=== PATIENT | male | born 2005 | race Caucasian/White ===

== ENCOUNTER 2024-06-10 22:33 | Inpatient (IN) ==
--- NOTE | 2024-06-10 22:40 | Emergency Department Note ---
Impression & Plan Mycoplasma pneumonia, Hypoxia, Fever ED Provider Note NAME: JORGE LUIS ROLON AGE: 19 SEX: M : 2005 ARRIVES VIA: Ambulance INFORMANT: EMS/nursing report, father ED PROVIDER(S): Bobby Hooker MD CHIEF COMPLAINT: Fever, possible pneumonia MEDICAL DECISION MAKING: Patient presents due to concern for fever possible pneumonia. IV was established and blood work was obtained. IV fluids ordered. The patient was ordered empiric antibiotic for possible pneumonia s. Patient with a normal white count hemoglobin and platelet count. The patient's kidney function unremarkable. Lactate normal. Pro-John not elevated. Chest x-ray without obvious pneumonia. Gaseous distention noted of the stomach. There was no reported vomiting the patient does have occasional constipation per the father at bedside. CT abdomen pelvis performed to rule out bowel obstruction. BioFire positive for mycoplasma pneumonia. CT abdomen pelvis shows gas distended colon without volvulus and fluid-filled small bowel without flo dilatation to suggest obstruction. Upon reevaluation the patient did have a very large bowel movement. Given the patient's hypoxia I did speak with the on-call medicine service and the patient was admitted by Dr. Parker. Critical Care: I have personally spent 50 minutes of critical care time in direct management of this patient. This includes bedside care, interpretation of diagnostic studies, and testing, discussion with consultants, patient, and family members, and other require inpatient management activities. This 50 minutes is in excess of all separately billable procedures. Discussion w/ other healthcare providers: Dr. Parker inpatient medicine service Prior /Outside records reviewed: None Differential diagnosis: Reactive airway disease, pneumonia, pneumothorax, COPD, CHF, ACS, pulmonary embolism, musculoskeletal, GERD as well as other pathologies were considered. Diagnostics, as interpreted by me: ECG: Sinus tachycardia, rate of 102, normal intervals, normal axis no ST elevations. Cardiac monitoring: An order was placed for continuous cardiac monitoring. The monitor shows a rate of 85 with sinus rhythm. Patient was placed on pulse oximetry Medical decision rules: None Imaging studies: I informally interpreted the patient's chest x-ray shows no obvious pneumonia but evidence of gaseous distention of the bowel with formal report to follow. HPI: Patient presents due to concern for respiratory difficulties but no associated vomiting. Patient reportedly was recently hospitalized at [facility] and there were some reports of seizures. 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 Patient reportedly had a temperature of 105 at home did receive a Tylenol suppository. EMS reported that the patient was satting in the 80s did receive breathing treatments and route as well as IV fluids. Patient is nonverbal. Father did arrive and can provide some history reporting that he was recently admitted to [facility]. He does not live with his son but states that patient's mother had told him about the recent illness. PAST MEDICAL HISTORY: See Below PAST SURGICAL HISTORY: See Below SOCIAL HISTORY: See Below HOME MEDICATIONS: See Below ALLERGIES: See Below VITALS: See Below PHYSICAL EXAMINATION: GENERAL: NAD, non-toxic. EYE EXAM: Normal conjunctiva. PERRL, no anisocoria and EOM's grossly intact w/o pain. OROPHARYNX: Moist mucus membranes, grossly normal dentition. NECK: Trachea midline, no stridor. LUNGS: Rhonchi at both bases more prominent left chest. Normal chest wall mechanics. HEART: NSR, no MRG. ABDOMEN: Abdomen soft, non-tender, no masses, no rebound or guarding. BACK: No CVA TTP. : Circumcised, bilateral descended no evidence of Luisana's cellulitis or abscess SKIN: No rashes and no bruising. UPPER EXTREMITIES: Upper extremities are grossly normal. LOWER EXTREMITIES: Grossly normal, no edema. NEURO EXAM: Nonverbal. Moves all 4 extremities. Past Med/Surg History Problem List (Updated 06/14/24 @ 08:35 by Bobby Hooker MD) Fever (Acute) Hypoxia (Acute) Colon distention Mycoplasma pneumonia (Acute) Acute UTI Encounter for pre-operative examination Gross hematuria Medical History (Updated 06/14/24 @ 08:35 by Bobby Hooker MD) GERD (gastroesophageal reflux disease) ATR-X syndrome History of anesthesia reaction diffulty waking during EGD to check for achalasia at [facility] 05/2023, no achalasia present per mom Scoliosis Incontinence History of hematuria Limited peripheral vision of both eyes Abnormal electroencephalogram (EEG) "abnormal neurological event" approximately one year ago, follows with Dr Ricki Humphreys at [facility] Cerebral palsy non verbal, able to follow some simple commands, mother will be present DOS Surgical History History of esophagogastroduodenoscopy (EGD) [facility], 05/2023, difficulty waking patient Social History Smoking Status: Never smoker Second Hand Exposure: No; Do You Dip or Chew Tobacco: No; Hx Alcohol Use: No Hx Substance Use: No Preferred Language: Frisian Communication Ability: Impaired Communication Ability Comment: mother states he can follow simple commands Seamer Elastic Band Required: No Beliefs That Will Affect Care: None Current Living Situation: Family Other Information That Helps Us Care for You: No Feels Safe at Home: Declines to Answer Assistive Devices: Hospital Bed and Wheelchair Allergies Allergies Allergy/AdvReac Type Severity Reaction Status Date / Time No Known Allergies Allergy Verified 09/01/23 06:23 Home Meds Home Medications Medication Instructions Recorded Confirmed baclofen 10 mg tablet 10 mg PO UD 06/11/24 06/11/24 bethanechol chloride 2.5 ml PO TID 06/11/24 06/11/24 bisacodyl 5 mg tablet,delayed 5 mg PO DAILY 06/11/24 06/11/24 release (Laxative (bisacodyl)) glycopyrrolate 1 mg tablet 2 mg PO BID 06/11/24 06/11/24 lansoprazole 30 mg delayed 30 mg PO BID 06/11/24 06/11/24 release,disintegrating tablet sulfamethoxazole 800 1 tab PO DIRECTED 06/11/24 06/11/24 mg-trimethoprim 160 mg tablet Results & Data (ED) Vital Signs Vital Signs - 24 hr 06/10/24 22:36 06/10/24 22:42 06/10/24 22:55 Temperature 36.3 C L Temperature Source Oral Pulse Rate 110 H 107 H Pulse Rate [Apical] Pulse Rhythm [Apical] Pulse Strength [Apical] Respiratory Rate 27 H Respiratory Effort / Characteristics Respiratory Depth Blood Pressure 101/82 Blood Pressure [Right Arm] Blood Pressure Mean 88 Blood Pressure Mean [Right Arm] Pulse Oximetry 93 92 Oxygen Delivery Method Room Air Room Air Sepsis Recent Fever Within 48 Hours Yes Sepsis New/Unexplained Change in Mental Status No Sepsis Action Taken by Nursing No Action Required 06/10/24 23:02 06/10/24 23:31 06/11/24 00:00 Temperature Temperature Source Pulse Rate 101 H Pulse Rate [Apical] 97 H 112 H Pulse Rhythm [Apical] Regular Regular Pulse Strength [Apical] Normal Normal Respiratory Rate 28 H 16 16 Respiratory Effort / Characteristics Non-Labored Spontaneous Non-Labored Spontaneous Respiratory Depth Normal Normal Blood Pressure Blood Pressure [Right Arm] 118/91 111/73 Blood Pressure Mean Blood Pressure Mean [Right Arm] 100 85 Pulse Oximetry 93 93 93 Oxygen Delivery Method Room Air Room Air Room Air Sepsis Recent Fever Within 48 Hours Sepsis New/Unexplained Change in Mental Status Sepsis Action Taken by [facility]dc Medications Current Medication List: was personally reviewed by me Laboratory Data Attestation: I reviewed the patient's lab results. 06/13/24 06:33 06/14/24 06:34 Lab Results 06/10/24 06/10/24 06/11/24 Range/Units 23:29 Unknown 00:37 WBC Cancelled 8.87 RBC Cancelled 5.58 Hgb Cancelled 14.7 Hct Cancelled 45.3 MCV Cancelled 81.2 MCH Cancelled 26.3 MCHC Cancelled 32.5 RDW Std Deviation Cancelled 48.2 H RDW Coeff of Felix Cancelled 16.7 H Plt Count Cancelled 160 MPV Cancelled Immature Gran % (Auto) Cancelled 1.0 Neut % (Auto) Cancelled 73.6 Lymph % (Auto) Cancelled 8.7 Terry % (Auto) Cancelled 14.0 Eos % (Auto) Cancelled 2.4 Baso % (Auto) Cancelled 0.3 Neut # (Auto) Cancelled 6.53 H Lymph # (Auto) Cancelled 0.77 L Terry # (Auto) Cancelled 1.24 H Eos # (Auto) Cancelled 0.21 Baso # (Auto) Cancelled 0.03 Immature Gran # (Auto) Cancelled 0.09 Absolute Nucleated RBC Cancelled Nucleated RBC % (auto) Cancelled Neutrophils % (Manual) Cancelled Band Neutrophils % Cancelled Lymphocytes % (Manual) Cancelled Prolymphocyte % Cancelled Reactive Lymphs % (Man) Cancelled Monocytes % (Manual) Cancelled Eosinophils % (Manual) Cancelled Basophils % (Manual) Cancelled Metamyelocytes % (Man) Cancelled Myelocytes % (Man) Cancelled Promyelocytes % (Man) Cancelled Blast Cells % (Manual) Cancelled Plasma Cell % (Manual) Cancelled Other Cells % Cancelled Nucleated RBC % Cancelled Neutrophils # (Manual) Cancelled Band Neutrophils # Cancelled Total Absolute Neuts Cancelled Lymphocytes # (Manual) Cancelled Prolymphocyte # Cancelled Reactive Lymphs # Cancelled Total Abs Lymphocytes Cancelled Monocytes # (Manual) Cancelled Eosinophils # (Manual) Cancelled Basophils # (Manual) Cancelled Metamyelocytes # (Man) Cancelled Myelocytes # (Manual) Cancelled Promyelocytes # (Man) Cancelled Blast Cells # (Man) Cancelled Plasma Cell # (Manual) Cancelled Other Cells # Cancelled Nucleated RBCs # (Man) Cancelled Hypersegmented Neuts Cancelled Hyposegmented Neuts Cancelled Hypogranular Neuts Cancelled Large Granular Lymphs Cancelled # Lrg Granular Lymphs Cancelled Hairy Cells Cancelled Smudge Cells Cancelled Toxic Granulation Cancelled Toxic Vacuolation Cancelled 1+ Dohle Bodies Cancelled Daphne Rods Cancelled Platelet Estimate Cancelled Decreased L Hypogranular Platelets Cancelled Giant Platelets Cancelled Platelet Satelliting Cancelled RBC Morphology Cancelled Polychromasia Cancelled 1+ Hypochromasia Cancelled Poikilocytosis Cancelled Basophilic Stippling Cancelled Anisocytosis Cancelled Microcytosis Cancelled Macrocytosis Cancelled Spherocytes Cancelled Pappenheimer Bodies Cancelled Sickle Cells Cancelled Target Cells Cancelled Tear Drop Cells Cancelled Ovalocytes Cancelled Stomatocytes Cancelled Brown-Bowdens Bodies Cancelled Echinocytes Cancelled Acanthocytes (Spur) Cancelled Rouleaux Cancelled RBC Agglutinates Cancelled Schistocytes Cancelled Sezary Cell Cancelled Sodium 137 (136-145) mmol/L Potassium 4.1 (3.5-5.1) mmol/L Chloride 105 (98-107) mmol/L Carbon Dioxide 26 (21-32) mmol/L Anion Gap 6 (3-11) BUN 11 (6-23) mg/dl Creatinine 0.79 (0.6-1.4) mg/dl Est Cr Clr Drug Dosing 92.8 ml/min eGFR 130.43 BUN/Creatinine Ratio 13.9 (10-20) Glucose 97 (70-99(Fasting)) mg/dl Lactate 1.7 (0.4-2.0) mmol/L Calcium 9.0 (8.6-10.3) mg/dl Magnesium 1.8 (1.7-2.4) mg/dl Total Bilirubin 0.7 (0.2-1.0) mg/dl Direct Bilirubin 0.1 (0-0.2) mg/dl AST 23 (13-39) U/L ALT 28 (7-52) U/L Alkaline Phosphatase 139 H (34-104) U/L Troponin I High Sens TNP Total Protein 6.8 (6.0-8.3) gm/dl Albumin 4.3 (3.4-5.0) gm/dl Procalcitonin 0.46 (0-0.5) ng/ml Adenovirus (PCR) Not Detected (NotDetected) B. pertussis DNA (PCR) Not Detected (NotDetected) B.parapertussis DNA PCR Not Detected (NotDetected) C. pneumoniae DNA (PCR) Not Detected (NotDetected) Coronavirus OC43 (PCR) Not Detected (NotDetected) Coronavirus HKU1 (PCR) Not Detected (NotDetected) Coronavirus 229E (PCR) Not Detected (NotDetected) SARS-CoV-2 (PCR) Not Detected (NotDetected) Coronavirus NL63 (PCR) Not Detected (NotDetected) Human Metapneumovir PCR Not Detected (NotDetected) Influenza Type A (PCR) Not Detected (NotDetected) Influenza Type B (PCR) Not Detected (NotDetected) M. pneumoniae (PCR) DETECTED A (NotDetected) Parainfluenza 1 (PCR) Not Detected (NotDetected) Parainfluenza 2 (PCR) Not Detected (NotDetected) Parainfluenza 3 (PCR) Not Detected (NotDetected) Parainfluenza 4 (PCR) Not Detected (NotDetected) RSV (PCR) Not Detected (NotDetected) Entero/Rhino (PCR) Not Detected (NotDetected) Blood Parasites ID Cancelled Administered Medications Baclofen (Baclofen 10 Mg Tab) 20 mg PO TID@0800,1500,2000 [facility] Stop: 07/11/24 07:59 Last Admin: 06/14/24 07:41 Dose: 20 mg Documented By: Admin: 06/13/24 20:28 Dose: 20 mg Documented By: Admin: 06/13/24 16:18 Dose: 20 mg Documented By: Admin: 06/13/24 09:40 Dose: 20 mg Documented By: Admin: 06/12/24 20:12 Dose: Not Given Documented By: Admin: 06/12/24 14:56 Dose: 20 mg Documented By: JULIO C Admin: 06/12/24 09:01 Dose: 20 mg Documented By: JULIO C Admin: 06/11/24 20:26 Dose: 20 mg Documented By: Admin: 06/11/24 15:20 Dose: 20 mg Documented By: Admin: 06/11/24 09:09 Dose: 20 mg Documented By: AM Bisacodyl (Bisacodyl 5 Mg Tabec) 5 mg PO DAILY RC Stop: 07/11/24 08:59 Last Admin: 06/14/24 07:41 Dose: 5 mg Documented By: Admin: 06/13/24 09:41 Dose: Not Given Documented By: Admin: 06/12/24 09:06 Dose: Not Given Documented By: JULIO C Admin: 06/11/24 09:23 Dose: 5 mg Documented By: AM Glycopyrrolate (Glycopyrrolate 1 Mg Tab) 2 mg PO BID RC Stop: 07/11/24 08:59 Last Admin: 06/14/24 07:34 Dose: 2 mg Documented By: Admin: 06/13/24 20:28 Dose: 2 mg Documented By: Admin: 06/13/24 09:40 Dose: 2 mg Documented By: Admin: 06/12/24 20:12 Dose: Not Given Documented By: Admin: 06/12/24 09:01 Dose: 2 mg Documented By: JULIO C Admin: 06/11/24 20:26 Dose: 2 mg Documented By: Admin: 06/11/24 13:01 Dose: Not Given Documented By: AM Heparin Sodium (Porcine) (Heparin Sod 5,000 Unit/0.5 Ml Vial) 5,000 units SQ Q12 RC Stop: 07/11/24 08:59 Last Admin: 06/14/24 07:50 Dose: 5,000 units Documented By: Admin: 06/13/24 20:28 Dose: 5,000 units Documented By: Admin: 06/11/24 09:23 Dose: 5,000 units Documented By: AM Doxycycline Hyclate 100 mg/ (Dextrose) 100 mls @ 50 mls/hr IV Q12H RC Stop: 06/16/24 03:59 Last Infusion: 06/14/24 05:07 Dose: Infused Documented By: Admin: 06/14/24 03:07 Dose: 50 mls/hr Documented By: Infusion: 06/13/24 18:45 Dose: Infused Documented By: Admin: 06/13/24 16:00 Dose: 50 mls/hr Documented By: Infusion: 06/13/24 05:30 Dose: Infused Documented By: Admin: 06/13/24 03:15 Dose: 50 mls/hr Documented By: Infusion: 06/12/24 16:47 Dose: Infused Documented By: JULIO C Admin: 06/12/24 14:50 Dose: 50 mls/hr Documented By: JULIO C Infusion: 06/12/24 06:42 Dose: Infused Documented By: Infusion: 06/12/24 05:30 Dose: 50 mls/hr Documented By: Infusion: 06/12/24 05:15 Dose: 0 mls/hr Documented By: Admin: 06/12/24 04:32 Dose: 50 mls/hr Documented By: Infusion: 06/11/24 18:24 Dose: Infused Documented By: JULIO C Admin: 06/11/24 16:26 Dose: 50 mls/hr Documented By: JULIO C Infusion: 06/11/24 05:55 Dose: Infused Documented By: Admin: 06/11/24 03:51 Dose: 50 mls/hr Documented By: REJI Ceftriaxone Sodium (Rocephin) 2,000 mg in 50 mls @ 100 mls/hr IV Q24H RC Stop: 06/21/24 20:59 Last Infusion: 06/13/24 21:40 Dose: Infused Documented By: Admin: 06/13/24 21:10 Dose: 100 mls/hr Documented By: Infusion: 06/12/24 20:42 Dose: Infused Documented By: Admin: 06/12/24 20:12 Dose: 100 mls/hr Documented By: Infusion: 06/11/24 20:55 Dose: Infused Documented By: Admin: 06/11/24 20:25 Dose: 100 mls/hr Documented By: KIRAN Pantoprazole Sodium (Protonix) 40 mg in 10 mls @ 5 mls/min IV BID RC Stop: 07/13/24 20:59 Last Admin: 06/14/24 07:35 Dose: 5 mls/min Documented By: Admin: 06/13/24 20:29 Dose: 5 mls/min Documented By: KIRAN Potassium Chloride/Dextrose/Sod Cl (D5nss + 20meq Kcl) 20 meq in 1,000 mls @ 60 mls/hr IV .[id number] RC Stop: 06/14/24 13:59 Last Admin: 06/14/24 07:50 Dose: 60 mls/hr Documented By: Infusion: 06/14/24 07:50 Dose: Infused Documented By: Admin: 06/13/24 16:18 Dose: 60 mls/hr Documented By: JOHNNY Lansoprazole (Lansoprazole 30 Mg Soltab) 30 mg PO BID RC Stop: 07/11/24 08:59 Last Admin: 06/13/24 09:40 Dose: 30 mg Documented By: Admin: 06/12/24 20:13 Dose: Not Given Documented By: Admin: 06/12/24 09:01 Dose: 30 mg Documented By: JULIO C Admin: 06/11/24 20:26 Dose: 30 mg Documented By: Admin: 06/11/24 09:10 Dose: 30 mg Documented By: AM Levalbuterol HCl (Levalbuterol Hcl 0.63 Mg/3 Ml Neb) 0.63 mg NEB Q4H PRN; Protocol PRN Reason: Shortness Of Breath Or Wheezing Stop: 07/11/24 03:03 Last Admin: 06/11/24 08:30 Dose: 0.63 mg Documented By: [id number] Magnesium Oxide (Magnesium Oxide 400 Mg Tab) 400 mg PO BID RC Stop: 07/12/24 10:44 Last Admin: 06/14/24 07:34 Dose: 400 mg Documented By: Admin: 06/13/24 20:29 Dose: 400 mg Documented By: Admin: 06/13/24 09:40 Dose: 400 mg Documented By: Admin: 06/12/24 20:13 Dose: Not Given Documented By: Admin: 06/12/24 10:47 Dose: 400 mg Documented By: JULIO C Miscellaneous (Bethanechol Chloride 1 Mg/Ml: Order Awaiting Action) 1 each N/A QS RC Stop: 07/11/24 07:59 Last Admin: 06/14/24 07:51 Dose: Not Given Documented By: Admin: 06/13/24 23:04 Dose: Not Given Documented By: Admin: 06/13/24 18:45 Dose: 1 each Documented By: Admin: 06/13/24 09:41 Dose: 1 each Documented By: Admin: 06/12/24 23:06 Dose: Not Given Documented By: Admin: 06/12/24 17:09 Dose: Not Given Documented By: JULIO C Admin: 06/12/24 09:05 Dose: Not Given Documented By: JULIO C Admin: 06/11/24 23:01 Dose: Not Given Documented By: Admin: 06/11/24 17:09 Dose: Not Given Documented By: JULIO C Admin: 06/11/24 09:09 Dose: Not Given Documented By: AM Discontinued Medications Albuterol (Albut/Ipratrop 3mg/0.5mg Neb 3 Ml Vial) 6 ml NEB NOW STA; Protocol Stop: 06/11/24 00:12 Last Admin: 06/11/24 00:39 Dose: 6 ml Documented By: CHERELLE Diphenhydramine HCl (Diphenhydramine 50 Mg/Ml Vial) 12.5 mg IV NOW STA Stop: 06/12/24 05:54 Last Admin: 06/12/24 06:17 Dose: 12.5 mg Documented By: KIRAN Sodium Chloride (Nss) 1,000 mls @ 999 mls/hr IV .Q1H1M RC Stop: 06/11/24 00:00 Last Infusion: 06/11/24 00:47 Dose: Infused Documented By: [facility] Admin: 06/10/24 23:15 Dose: 999 mls/hr Documented By: [facility] Ceftriaxone Sodium (Rocephin) 2,000 mg in 50 mls @ 100 mls/hr IV NOW STA Stop: 06/10/24 23:19 Last Infusion: 06/10/24 23:59 Dose: Infused Documented By: [facility] Admin: 06/10/24 23:32 Dose: 100 mls/hr Documented By: [facility] Metronidazole (Flagyl) 500 mg in 100 mls @ 100 mls/hr IV NOW STA; Protocol Stop: 06/10/24 23:49 Last Infusion: 06/11/24 00:59 Dose: Infused Documented By: [facility] Admin: 06/10/24 23:58 Dose: 100 mls/hr Documented By: Asia Acetaminophen (Ofirmev) 1,000 mg in 100 mls @ 400 mls/hr IV Q8H PRN PRN Reason: Pain or Fever Stop: 06/14/24 03:03 Last Infusion: 06/12/24 05:30 Dose: Infused Documented By: Admin: 06/12/24 05:15 Dose: 400 mls/hr Documented By: Infusion: 06/11/24 14:00 Dose: Infused Documented By: Admin: 06/11/24 13:41 Dose: 400 mls/hr Documented By: Infusion: 06/11/24 04:05 Dose: Infused Documented By: Admin: 06/11/24 03:47 Dose: 400 mls/hr Documented By: HANS Sodium Chloride (Nss) 1,000 mls @ 125 mls/hr IV .Q8H RC Stop: 06/12/24 03:03 Last Infusion: 06/12/24 16:47 Dose: Infused Documented By: Infusion: 06/12/24 10:29 Dose: 80 mls/hr Documented By: Admin: 06/12/24 06:16 Dose: 125 mls/hr Documented By: Infusion: 06/12/24 06:11 Dose: Infused Documented By: Infusion: 06/12/24 04:32 Dose: 125 mls/hr Documented By: Infusion: 06/12/24 03:19 Dose: 0 mls/hr Documented By: Admin: 06/11/24 20:57 Dose: 125 mls/hr Documented By: Infusion: 06/11/24 19:09 Dose: Infused Documented By: Admin: 06/11/24 17:00 Dose: Not Given Documented By: Infusion: 06/11/24 15:19 Dose: 125 mls/hr Documented By: Infusion: 06/11/24 14:14 Dose: 100 mls/hr Documented By: Infusion: 06/11/24 07:57 Dose: 0 mls/hr Documented By: Admin: 06/11/24 03:49 Dose: 100 mls/hr Documented By: DA Ampicillin Sodium/Sulbactam Sodium (Unasyn) 3,000 mg in 100 mls @ 200 mls/hr IV Q6H RC Stop: 06/16/24 05:59 Last Infusion: 06/11/24 12:53 Dose: Infused Documented By: Admin: 06/11/24 12:14 Dose: 200 mls/hr Documented By: Infusion: 06/11/24 06:35 Dose: Infused Documented By: Admin: 06/11/24 06:09 Dose: 200 mls/hr Documented By: DAAsia Magnesium Sulfate/Dextrose (Magnesium Sulfate / D5w) 1 gm in 100 mls @ 50 mls/hr IV ONE ONE Stop: 06/11/24 13:42 Last Infusion: 06/11/24 16:20 Dose: Infused Documented By: Admin: 06/11/24 13:26 Dose: 50 mls/hr Documented By: AM Potassium Chloride (K Denny / Wtr) 10 meq in 100 mls @ 100 mls/hr IV Q1H RC; Protocol Stop: 06/11/24 15:14 Last Infusion: 06/11/24 16:20 Dose: Infused Documented By: Admin: 06/11/24 15:14 Dose: 100 mls/hr Documented By: Infusion: 06/11/24 14:46 Dose: Infused Documented By: Admin: 06/11/24 13:46 Dose: 100 mls/hr Documented By: AM Magnesium Sulfate/Dextrose (Magnesium Sulfate / D5w) 1 gm in 100 mls @ 50 mls/hr IV ONE ONE Stop: 06/12/24 12:30 Last Infusion: 06/12/24 12:44 Dose: Infused Documented By: Admin: 06/12/24 10:47 Dose: 50 mls/hr Documented By: CM Potassium Chloride (K Denny / Wtr) 10 meq in 100 mls @ 100 mls/hr IV Q1H RC; Protocol Stop: 06/13/24 15:59 Last Infusion: 06/13/24 22:16 Dose: Infused Documented By: Admin: 06/13/24 20:16 Dose: 50 mls/hr Documented By: Infusion: 06/13/24 17:21 Dose: Infused Documented By: Infusion: 06/13/24 16:33 Dose: 100 mls/hr Documented By: Infusion: 06/13/24 16:27 Dose: 50 mls/hr Documented By: Admin: 06/13/24 16:18 Dose: 100 mls/hr Documented By: CA Magnesium Sulfate/Dextrose (Magnesium Sulfate / D5w) 1 gm in 100 mls @ 50 mls/hr IV ONE ONE Stop: 06/13/24 19:05 Last Infusion: 06/13/24 20:43 Dose: Infused Documented By: Admin: 06/13/24 18:43 Dose: 50 mls/hr Documented By: JOHNNY Ioversol (Optiray 320 100ml) 91 ml IV ONCE ONE Stop: 06/10/24 23:51 Last Admin: 06/10/24 23:55 Dose: 91 ml Documented By: ELAD Ketorolac Tromethamine (Ketorolac Tromethamine 15 Mg/Ml Vial) 10 mg IV NOW ONE Stop: 06/11/24 08:43 Last Admin: 06/11/24 09:23 Dose: 10 mg Documented By: NATAN Ketorolac Tromethamine (Ketorolac Tromethamine 15 Mg/Ml Vial) 10 mg IV NOW ONE Stop: 06/11/24 13:54 Last Admin: 06/11/24 15:17 Dose: 10 mg Documented By: NATAN Ketorolac Tromethamine (Ketorolac Tromethamine 15 Mg/Ml Vial) 10 mg IV NOW ONE Stop: 06/11/24 13:55 Last Admin: 06/11/24 15:19 Dose: Not Given Documented By: AM Ketorolac Tromethamine (Ketorolac Tromethamine 15 Mg/Ml Vial) 15 mg IV NOW ONE Stop: 06/11/24 20:45 Last Admin: 06/11/24 20:51 Dose: 15 mg Documented By: KIRAN Morphine Sulfate (Morphine Sulfate 2 Mg/Ml Carp) 2 mg IV NOW STA Stop: 06/11/24 17:45 Last Admin: 06/11/24 18:00 Dose: 2 mg Documented By: JULIO C Ondansetron HCl (Ondansetron Inj 2 Mg/Ml 2 Ml Vial) 4 mg IV NOW STA Stop: 06/10/24 22:51 Last Admin: 06/10/24 23:14 Dose: 4 mg Documented By: [facility] Imaging Data Radiologist's Impression: Chest X-Ray 06/10/24 22:47 Exam(s): XR CXR 1 VIEW EXAM: XR Chest, 1 View CLINICAL HISTORY: Reason for exam: Sepsis. TECHNIQUE: Frontal view of the chest. COMPARISON: No relevant prior studies available. FINDINGS: Lungs: Clear lungs. No consolidation. Pleural space: Unremarkable. No pleural effusion or pneumothorax. Heart: Unremarkable. No cardiomegaly or pulmonary vascular congestion. Bones/joints: No acute fracture. No dislocation. Upper abdomen: Significant gaseous distention of the colon. IMPRESSION: 1. Significant gaseous distention of the colon. 2. Clear lungs. Electronically signed by: Marie Culp M.D. 06/10/24 23:51 PM Abdomen/Pelvis CT 06/10/24 23:33 Exam(s): CT ABDOMEN + PELVIS With Contrast IV Amt: 91 cc opti 320 EXAM: CT Abdomen and Pelvis With Intravenous Contrast CLINICAL HISTORY: Reason for exam: vomiting, significant bowel angelo on CXR. TECHNIQUE: Axial computed tomography images of the abdomen and pelvis with intravenous contrast. CTDI is 7.76 mGy and DLP is 366.97 mGy-cm. Automated exposure control was utilized for the study. A dose lowering technique was utilized adhering to the principles of ALARA. CONTRAST: Patient received 91 cc opti 320 of IV contrast COMPARISON: No relevant prior studies available. FINDINGS: Study is degraded by motion. There are mild opacities at the left lung base which may reflect aspiration. Spleen is mildly enlarged. Liver, gallbladder, pancreas, adrenal glands, and kidneys are unremarkable. Aorta is normal in caliber. Superior mesenteric artery and superior mesenteric vein appear patent. Appendix is not visualized. There is gaseous distention of the colon without visible sigmoid volvulus. There are fluid-filled loops of small bowel without flo bowel dilatation. There is a small volume of pelvic ascites. There is no free air. Urinary bladder and prostate are unremarkable. Skeleton appears intact. IMPRESSION: 1. Gas distended colon without visible volvulus. 2. Fluid-filled small bowel without flo dilatation to suggest obstruction. Consider enteritis and correlate clinically. 3. Small volume of pelvic ascites. No free air. Electronically signed by: Marie Culp M.D. 06/11/24 00:28 AM Discharge Plan Visit Data Chief Complaint: Respiratory Problems Stated Complaint: ARX SYNDROME ?ASPIRATION PNEUMONIA ED Provider: Bobby Hooker Discharge Problem: Mycoplasma pneumonia, Hypoxia, Fever Patient Disposition: Admitted As Inpatient Discharge Instructions Interventions: ED Discharge Assessment Last Done: 06/11/24 02:30 Discharge Problem: Mycoplasma pneumonia Qualifiers: Laterality: bilateral Lung location: lower lobe of lung Qualified Code(s): J 15.7 - Pneumonia due to Mycoplasma pneumoniae Fever Qualifiers: Fever type: due to other condition Qualified Code(s): R50.81 - Fever presenting with conditions classified elsewhere
[2024-06-10] MEDS: ONDANSETRON INJ 2 MG/ML 2 ML VIAL IV STA (23:14)
[2024-06-10] MEDS: SODIUM CHLORIDE 0.9% 1,000 ML IV SCH (23:15)
[2024-06-10] MEDS: cefTRIAXone SODIUM 2,000 MG/50 ML BAG IV STA (23:32)
--- NOTE | 2024-06-10 23:52 | XRay Report ---
Exam(s): XR CXR 1 VIEW EXAM: XR Chest, 1 View CLINICAL HISTORY: Reason for exam: Sepsis. TECHNIQUE: Frontal view of the chest. COMPARISON: No relevant prior studies available. FINDINGS: Lungs: Clear lungs. No consolidation. Pleural space: Unremarkable. No pleural effusion or pneumothorax. Heart: Unremarkable. No cardiomegaly or pulmonary vascular congestion. Bones/joints: No acute fracture. No dislocation. Upper abdomen: Significant gaseous distention of the colon. IMPRESSION: 1. Significant gaseous distention of the colon. 2. Clear lungs. Electronically signed by: Marie Culp M.D. 06/10/24 23:51 PM
[2024-06-10] MEDS: OPTIRAY 320 100ml IV ONE (23:55)
[2024-06-10 23:57] LABS: Albumin Level 4.3 gm/dl (3.4-5.0); Anion Gap 6 (3-11); Bilirubin Direct 0.1 mg/dl (0-0.2); Bilirubin,Total 0.7 mg/dl (0.2-1.0); Carbon Dioxide 26 mmol/L (21-32); Chloride 105 mmol/L (98-107); Magnesium 1.8 mg/dl (1.7-2.4); Potassium 4.1 mmol/L (3.5-5.1); Sodium 137 mmol/L (136-145)
[2024-06-10] MEDS: metroNIDAZOLE 500 MG/100 ML BAG IV STA (23:58)
[2024-06-11 00:03] LABS: Alanine Aminotransferase 28 U/L (7-52); Alkaline Phosphatase 139 U/L (34-104); Aspartate Aminotransferase 23 U/L (13-39); BUN Creatinine Ratio 13.9 (10-20); Blood Urea Nitrogen 11 mg/dl (6-23); Creatinine Clr Calc Pharmacy 92.8 ml/min; Glucose 97 mg/dl (70-99(Fasting)); Total Protein 6.8 gm/dl (6.0-8.3)
[2024-06-11 00:28] LABS: Adenovirus PCR Not Detected (NotDetected); Bordetella parapertussis PCR Not Detected (NotDetected); Bordetella pertussis PCR Not Detected (NotDetected); Chlamydia pneumoniae PCR Not Detected (NotDetected); Coronavirus 229E PCR Not Detected (NotDetected); Coronavirus CoV-2 (COVID19)PCR Not Detected (NotDetected); Coronavirus HKU1 PCR Not Detected (NotDetected); Coronavirus NL63 PCR Not Detected (NotDetected); Coronavirus OC43PCR Not Detected (NotDetected); Human Metapneumovirus PCR Not Detected (NotDetected); Influenza A PCR Not Detected (NotDetected); Influenza B PCR Not Detected (NotDetected); Mycoplasma pneumoniae PCR DETECTED (NotDetected); Parainfluenza Virus 1 PCR Not Detected (NotDetected); Parainfluenza Virus 2 PCR Not Detected (NotDetected); Parainfluenza Virus 3 PCR Not Detected (NotDetected); Parainfluenza Virus 4 PCR Not Detected (NotDetected); Respiratory Syncytial VirusPCR Not Detected (NotDetected); Rhinovirus/Enterovirus PCR Not Detected (NotDetected)
--- NOTE | 2024-06-11 00:29 | CT Scan Report ---
Exam(s): CT ABDOMEN + PELVIS With Contrast IV Amt: 91 cc opti 320 EXAM: CT Abdomen and Pelvis With Intravenous Contrast CLINICAL HISTORY: Reason for exam: vomiting, significant bowel angelo on CXR. TECHNIQUE: Axial computed tomography images of the abdomen and pelvis with intravenous contrast. CTDI is 7.76 mGy and DLP is 366.97 mGy-cm. Automated exposure control was utilized for the study. A dose lowering technique was utilized adhering to the principles of ALARA. CONTRAST: Patient received 91 cc opti 320 of IV contrast COMPARISON: No relevant prior studies available. FINDINGS: Study is degraded by motion. There are mild opacities at the left lung base which may reflect aspiration. Spleen is mildly enlarged. Liver, gallbladder, pancreas, adrenal glands, and kidneys are unremarkable. Aorta is normal in caliber. Superior mesenteric artery and superior mesenteric vein appear patent. Appendix is not visualized. There is gaseous distention of the colon without visible sigmoid volvulus. There are fluid-filled loops of small bowel without flo bowel dilatation. There is a small volume of pelvic ascites. There is no free air. Urinary bladder and prostate are unremarkable. Skeleton appears intact. IMPRESSION: 1. Gas distended colon without visible volvulus. 2. Fluid-filled small bowel without flo dilatation to suggest obstruction. Consider enteritis and correlate clinically. 3. Small volume of pelvic ascites. No free air. Electronically signed by: Marie Culp M.D. 06/11/24 00:28 AM
[2024-06-11] MEDS: ALBUT/IPRATROP 3MG/0.5MG NEB 3 ML VIAL NEB STA (00:39)
[2024-06-11 01:01] LABS: Hematocrit (blood only) 45.3 % (42.0-52.0); Hemoglobin 14.7 g/dl (14.0-18.0); Mean Corpuscular Hemoglobin 26.3 pg (25.0-34.0); Mean Corpuscular Hgb Conc 32.5 g/dL (32.0-36.0); Mean Corpuscular Volume 81.2 fL (80.0-100.0); RDW Coefficient of Variation 16.7 % (11.5-14.5); RDW Standard Deviation 48.2 fL (36.4-46.3); Red Blood Count 5.58 M/uL (4.70-6.10); White Blood Count 8.87 K/ul (4.8-10.8)
[2024-06-11 01:30] LABS: Basophils # (auto) 0.03 K/uL (0.00-0.20); Basophils % (auto) 0.3 %; Eosinophils # (auto) 0.21 K/uL (0.00-0.50); Eosinophils % (auto) 2.4 %; Immature Granulocytes # (auto) 0.09 K/uL (0.01-0.20); Lymphocytes # (auto) 0.77 K/uL (1.20-3.40); Lymphocytes % (auto) 8.7 %; Monocytes # (auto) 1.24 K/uL (0.11-0.59); Neutrophils # (auto) 6.53 K/uL (1.40-6.50); Neutrophils % (auto) 73.6 %; Platelet Count 160 K/uL (130-400); Platelet Estimate Decreased (Normal); Polychromasia 1+; Toxic Vacuolation 1+
--- NOTE | 2024-06-11 02:42 | History & Physical Report ---
Date of Service June 11, 2024 Assessment & Plan (1) Mycoplasma pneumonia: Plan: 19-year-old male with past medical history significant for cerebral palsy, alpha thalassemia X-linked intellectual disability syndrome, flexion contractures, swallowing dysfunction and on pured diet, GERD, constipation, nonverbal, nonambulatory status lives with his mother was brought in because of high fever, tachycardia and hypoxia. Currently father is in the room who does not live with the son. Able to talk to the mother on the phone. Patient was recently admitted to [facility] on May 31 due to seizures. As per mother the doctors thought the seizures were probably because of missing his baclofen. Mother thinks he missed only couple of doses. No seizure medication was prescribed. Mother thinks he might of aspirated during the episode. Today patient was having some cough. And having fever of 105 degrees. And heart rates 120s. When checked his oxygen level saturations were 83% and mother put him on oxygen. Patient usually does not use oxygen. With oxygen Sats came up to mid 90s as per mother. Currently patient's heart rate still in 130s. Blood pressure is okay. Saturating 95% 2 L. He seems comfortable. No recent nausea or vomiting. He generally constipated. His BioFire came back positive for mycoplasma pneumonia. Chest x-ray looks okay. No leukocytosis. CT abdomen pelvis gas-distended colon without visible volvulus and possible enteritis. As per mother patient last night had hematuria and mother called the urologist on- call and was prescribed Bactrim which the patient has not taken it yet and she also gave him Pyridium from his previous prescription. Patient followed with urology in September 2023 for gross hematuria and had cystoscopy which was unremarkable and urine cytology was negative for urothelial carcinoma. Has history of UTI with Klebsiella treated with Bactrim in the past. Mycoplasma pneumonia Fever tachycardia and hypoxia Saturating okay on 2 L Chest x-ray is okay Possible aspiration as per mother as swallowing difficulty and recently had a seizure Empirically placed on Unasyn and doxycycline Will monitor Hematuria Follow UA Antibiotics as above Will consider urology consult Nutrition At home on pured diet as per father Clears for now History of cerebral palsy History of intellectual disability History of swallowing dysfunction Constipation 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 GERD On lansoprazole DVT prophylaxis Heparin subcu Disposition Telemetry Full code. History of Present Illness Chief Complaint: Fever and tachycardia Primary Care Provider: Pradeep Randhawa MD 19-year-old male with past medical history significant for cerebral palsy, alpha thalassemia X-linked intellectual disability syndrome, flexion contractures, swallowing dysfunction and on pured diet, GERD, constipation, nonverbal, nonambulatory status lives with his mother was brought in because of high fever, tachycardia and hypoxia. Currently father is in the room who does not live with the son. Able to talk to the mother on the phone. Patient was recently admitted to [facility] on May 31 due to seizures. As per mother the doctors thought the seizures were probably because of missing his baclofen. Mother thinks he missed only couple of doses. No seizure medication was prescribed. Mother thinks he might of aspirated during the episode. Today patient was having some cough. And having fever of 105 degrees. And heart rates 120s. When checked his oxygen level saturations were 83% and mother put him on oxygen. Patient usually does not use oxygen. With oxygen Sats came up to mid 90s as per mother. Currently patient's heart rate still in 130s. Blood pressure is okay. Saturating 95% 2 L. He seems comfortable. No recent nausea or vomiting. He generally constipated. His BioFire came back positive for myco plasma pneumonia. Chest x-ray looks okay. No leukocytosis. CT abdomen pelvis gas-distended colon without visible volvulus and possible enteritis. As per mother patient last night had hematuria and mother called the urologist on-call and was prescribed Bactrim which the patient has not taken it yet and she also gave him Pyridium from his previous prescription. Patient followed with urology in September 2023 for gross hematuria and had cystoscopy which was unremarkable and urine cytology was negative for urothelial carcinoma. Has history of UTI with Klebsiella treated with Bactrim in the past. Past medical history. As mentioned above Past surgical history. Cystoscopy. Social history. Lives with his mother. No alcohol. No smoking. No drug use. Family history. No family history on file Allergies Allergy/AdvReac Type Severity Reaction Status Date / Time No Known Allergies Allergy Verified 09/01/23 06:23 Home Medications Medication Instructions Recorded Confirmed Type baclofen 10 mg tablet 10 mg PO UD 06/11/24 06/11/24 History bethanechol chloride 2.5 ml PO TID 06/11/24 06/11/24 History bisacodyl 5 mg tablet,delayed 5 mg PO DAILY 06/11/24 06/11/24 History release (Laxative (bisacodyl)) glycopyrrolate 1 mg tablet 2 mg PO BID 06/11/24 06/11/24 History lansoprazole 30 mg delayed 30 mg PO BID 06/11/24 06/11/24 History release,disintegrating tablet sulfamethoxazole 800 1 tab PO DIRECTED 06/11/24 06/11/24 History mg-trimethoprim 160 mg tablet Past Med/Surg History Problem List (Updated 06/11/24 @ 02:40 by Rey Parker MD) Mycoplasma pneumonia Acute UTI Encounter for pre-operative examination Gross hematuria Medical History (Updated 06/11/24 @ 02:40 by Rey Parker MD) GERD (gastroesophageal reflux disease) ATR-X syndrome History of anesthesia reaction diffulty waking during EGD to check for achalasia at [facility] 05/2023, no achalasia present per mom Scoliosis Incontinence History of hematuria Limited peripheral vision of both eyes Abnormal electroencephalogram (EEG) "abnormal neurological event" approximately one year ago, follows with Dr Ricki Humphreys at [facility] in [place] Cerebral palsy non verbal, able to follow some simple commands, mother will be present DOS Surgical History History of esophagogastroduodenoscopy (EGD) [facility], 05/2023, difficulty waking patient Social History Smoking Status: Never smoker Second Hand Exposure: No; Do You Dip or Chew Tobacco: No; Hx Alcohol Use: No Hx Substance Use: No Preferred Language: Ukrainian Communication Ability: Impaired Communication Ability Comment: mother states he can follow simple commands Research Professional Required: No Beliefs That Will Affect Care: None Current Living Situation: Family Other Information That Helps Us Care for You: No Feels Safe at Home: Declines to Answer Assistive Devices: Wheelchair Review of Systems Review of Systems: All systems reviewed & are unremarkable except as noted in HPI & below Physical Exam Physical Exam: General- Not in acute distress, Non verbal Head- atraumatic Eyes- PERRL. ENT- oropharynx clear. poor dentition Neck- supple, no JVD. Lungs- clear to auscultation no wheezing or crackles Heart- regular rhythm; tachycardia, no murmur, no gallop. Abdomen- normal bowel sounds, soft, nontender, no distension Extremities- no pretibial edema, contractures of extremities seen Neuro- alert, awake, non verbal. Results & Data Results & Data Vital Signs (Past 12 Hours) Vital Signs Temp Pulse Pulse Resp BP BP Pulse Ox 06/11/24 01:00 137 H 18 113/88 95 06/11/24 00:35 119 H 18 114/91 97 06/11/24 00:00 112 H 16 111/73 93 06/10/24 23:31 97 H 16 118/91 93 06/10/24 23:02 101 H 28 H 93 06/10/24 22:55 92 06/10/24 22:42 107 H 06/10/24 22:36 36.3 C L 110 H 27 H 101/82 93 O2 Del Method O2 Flow Rate 06/11/24 01:00 Nasal Cannula 2 06/11/24 00:35 06/11/24 00:00 Room Air 06/10/24 23:31 Room Air 06/10/24 23:02 Room Air 06/10/24 22:55 Room Air 06/10/24 22:42 06/10/24 22:36 Room Air Diagnostic Findings Laboratory Results WBC 8.87 K/ul (4.8-10.8) 06/11/24 00:37 RBC 5.58 M/uL (4.70-6.10) 06/11/24 00:37 Hgb 14.7 g/dl (14.0-18.0) 06/11/24 00:37 Hct 45.3 % (42.0-52.0) 06/11/24 00:37 MCV 81.2 fL (80.0-100.0) 06/11/24 00:37 MCH 26.3 pg (25.0-34.0) 06/11/24 00:37 MCHC 32.5 g/dL (32.0-36.0) 06/11/24 00:37 RDW Std Deviation 48.2 fL (36.4-46.3) H 06/11/24 00:37 RDW Coeff of Felix 16.7 % (11.5-14.5) H 06/11/24 00:37 Plt Count 160 K/uL (130-400) 06/11/24 00:37 MPV Cancelled 06/10/24 23:29 Immature Gran % (Auto) 1.0 % 06/11/24 00:37 Neut % (Auto) 73.6 % 06/11/24 00:37 Lymph % (Auto) 8.7 % 06/11/24 00:37 [place] % (Auto) 14.0 % 06/11/24 00:37 Eos % (Auto) 2.4 % 06/11/24 00:37 Baso % (Auto) 0.3 % 06/11/24 00:37 Neut # (Auto) 6.53 K/uL (1.40-6.50) H 06/11/24 00:37 Lymph # (Auto) 0.77 K/uL (1.20-3.40) L 06/11/24 00:37 [place] # (Auto) 1.24 K/uL (0.11-0.59) H 06/11/24 00:37 Eos # (Auto) 0.21 K/uL (0.00-0.50) 06/11/24 00:37 Baso # (Auto) 0.03 K/uL (0.00-0.20) 06/11/24 00:37 Immature Gran # (Auto) 0.09 K/uL (0.01-0.20) 06/11/24 00:37 Absolute Nucleated RBC Cancelled 06/10/24 23:29 Nucleated RBC % (auto) Cancelled 06/10/24 23:29 Neutrophils % (Manual) Cancelled 06/10/24 23:29 Band Neutrophils % Cancelled 06/10/24 23:29 Lymphocytes % (Manual) Cancelled 06/10/24 23:29 Prolymphocyte % Cancelled 06/10/24 23:29 Reactive Lymphs % (Man) Cancelled 06/10/24 23:29 Monocytes % (Manual) Cancelled 06/10/24 23:29 Eosinophils % (Manual) Cancelled 06/10/24 23:29 Basophils % (Manual) Cancelled 06/10/24 23:29 Metamyelocytes % (Man) Cancelled 06/10/24 23:29 Myelocytes % (Man) Cancelled 06/10/24 23:29 Promyelocytes % (Man) Cancelled 06/10/24 23:29 Blast Cells % (Manual) Cancelled 06/10/24 23:29 Plasma Cell % (Manual) Cancelled 06/10/24 23:29 Other Cells % Cancelled 06/10/24 23:29 Nucleated RBC % Cancelled 06/10/24 23:29 Neutrophils # (Manual) Cancelled 06/10/24 23:29 Band Neutrophils # Cancelled 06/10/24 23:29 Total Absolute Neuts Cancelled 06/10/24 23:29 Lymphocytes # (Manual) Cancelled 06/10/24 23:29 Prolymphocyte # Cancelled 06/10/24 23:29 Reactive Lymphs # Cancelled 06/10/24 23:29 Total Abs Lymphocytes Cancelled 06/10/24 23:29 Monocytes # (Manual) Cancelled 06/10/24 23:29 Eosinophils # (Manual) Cancelled 06/10/24 23:29 Basophils # (Manual) Cancelled 06/10/24 23:29 Metamyelocytes # (Man) Cancelled 06/10/24 23:29 Myelocytes # (Manual) Cancelled 06/10/24 23:29 Promyelocytes # (Man) Cancelled 06/10/24 23:29 Blast Cells # (Man) Cancelled 06/10/24 23:29 Plasma Cell # (Manual) Cancelled 06/10/24 23:29 Other Cells # Cancelled 06/10/24 23:29 Nucleated RBCs # (Man) Cancelled 06/10/24 23:29 Hypersegmented Neuts Cancelled 06/10/24 23:29 Hyposegmented Neuts Cancelled 06/10/24 23:29 Hypogranular Neuts Cancelled 06/10/24 23:29 Large Granular Lymphs Cancelled 06/10/24 23:29 # Lrg Granular Lymphs Cancelled 06/10/24 23:29 Hairy Cells Cancelled 06/10/24 23:29 Smudge Cells Cancelled 06/10/24 23:29 Toxic Granulation Cancelled 06/10/24 23:29 Toxic Vacuolation 1+ 06/11/24 00:37 Dohle Bodies Cancelled 06/10/24 23:29 Daphne Rods Cancelled 06/10/24 23:29 Platelet Estimate Decreased (Normal) L 06/11/24 00:37 Hypogranular Platelets Cancelled 06/10/24 23:29 Giant Platelets Cancelled 06/10/24 23:29 Platelet Satelliting Cancelled 06/10/24 23:29 RBC Morphology Cancelled 06/10/24 23:29 Polychromasia 1+ 06/11/24 00:37 Hypochromasia Cancelled 06/10/24 23:29 Poikilocytosis Cancelled 06/10/24 23:29 Basophilic Stippling Cancelled 06/10/24 23:29 Anisocytosis Cancelled 06/10/24 23:29 Microcytosis Cancelled 06/10/24 23:29 Macrocytosis Cancelled 06/10/24 23:29 Spherocytes Cancelled 06/10/24 23:29 Pappenheimer Bodies Cancelled 06/10/24 23:29 Sickle Cells Cancelled 06/10/24 23:29 Target Cells Cancelled 06/10/24 23:29 Tear Drop Cells Cancelled 06/10/24 23:29 Ovalocytes Cancelled 06/10/24 23:29 Stomatocytes Cancelled 06/10/24 23:29 Brown-Taopi Bodies Cancelled 06/10/24 23:29 Echinocytes Cancelled 06/10/24 23:29 Acanthocytes (Spur) Cancelled 06/10/24 23:29 Rouleaux Cancelled 06/10/24 23:29 RBC Agglutinates Cancelled 06/10/24 23:29 Schistocytes Cancelled 06/10/24 23:29 Sezary Cell Cancelled 06/10/24 23:29 Sodium 137 mmol/L (136-145) 06/10/24 23:29 Potassium 4.1 mmol/L (3.5-5.1) 06/10/24 23:29 Chloride 105 mmol/L (98-107) 06/10/24 23:29 Carbon Dioxide 26 mmol/L (21-32) 06/10/24 23:29 Anion Gap 6 (3-11) 06/10/24 23:29 BUN 11 mg/dl (6-23) 06/10/24 23:29 Creatinine 0.79 mg/dl (0.6-1.4) 06/10/24 23:29 Est Cr Clr Drug Dosing 92.8 ml/min 06/10/24 23:29 eGFR 130.43 06/10/24 23:29 BUN/Creatinine Ratio 13.9 (10-20) 06/10/24 23:29 Glucose 97 mg/dl (70-99(Fasting)) 06/10/24 23: Lactate 1.7 mmol/L (0.4-2.0) 06/10/24 23: Calcium 9.0 mg/dl (8.6-10.3) 06/10/24 23: Magnesium 1.8 mg/dl (1.7-2.4) 06/10/24 23: Total Bilirubin 0.7 mg/dl (0.2-1.0) 06/10/24 23: Direct Bilirubin 0.1 mg/dl (0-0.2) 06/10/24 23:29 AST 23 U/L (13-39) 06/10/24 23: ALT 28 U/L (7-52) 06/10/24 23: Alkaline Phosphatase 139 U/L (34-104) H 06/10/24 23: Troponin I High Sens TNP 06/10/24 23: Total Protein 6.8 gm/dl (6.0-8.3) 06/10/24 23: Albumin 4.3 gm/dl (3.4-5.0) 06/10/24 23: Procalcitonin 0.46 ng/ml (0-0.5) 06/10/24 23:29 Adenovirus (PCR) Not Detected (NotDetected) 06/10/24 Unknown B. pertussis DNA (PCR) Not Detected (NotDetected) 06/10/24 Unknown B.parapertussis DNA PCR Not Detected (NotDetected) 06/10/24 Unknown C. pneumoniae DNA (PCR) Not Detected (NotDetected) 06/10/24 Unknown Coronavirus OC43 (PCR) Not Detected (NotDetected) 06/10/24 Unknown Coronavirus HKU1 (PCR) Not Detected (NotDetected) 06/10/24 Unknown Coronavirus 229E (PCR) Not Detected (NotDetected) 06/10/24 Unknown SARS-CoV-2 (PCR) Not Detected (NotDetected) 06/10/24 Unknown Coronavirus NL63 (PCR) Not Detected (NotDetected) 06/10/24 Unknown Human Metapneumovir PCR Not Detected (NotDetected) 06/10/24 Unknown Influenza Type A (PCR) Not Detected (NotDetected) 06/10/24 Unknown Influenza Type B (PCR) Not Detected (NotDetected) 06/10/24 Unknown M. pneumoniae (PCR) DETECTED (NotDetected) A 06/10/24 Unknown Parainfluenza 1 (PCR) Not Detected (NotDetected) 06/10/24 Unknown Parainfluenza 2 (PCR) Not Detected (NotDetected) 06/10/24 Unknown Parainfluenza 3 (PCR) Not Detected (NotDetected) 06/10/24 Unknown Parainfluenza 4 (PCR) Not Detected (NotDetected) 06/10/24 Unknown RSV (PCR) Not Detected (NotDetected) 06/10/24 Unknown Entero/Rhino (PCR) Not Detected (NotDetected) 06/10/24 Unknown Blood Parasites ID Cancelled 06/10/24 23:29 Impressions Chest X-Ray 06/10/24 22:47 Exam(s): XR CXR 1 VIEW EXAM: XR Chest, 1 View CLINICAL HISTORY: Reason for exam: Sepsis. TECHNIQUE: Frontal view of the chest. COMPARISON: No relevant prior studies available. FINDINGS: Lungs: Clear lungs. No consolidation. Pleural space: Unremarkable. No pleural effusion or pneumothorax. Heart: Unremarkable. No cardiomegaly or pulmonary vascular congestion. Bones/joints: No acute fracture. No dislocation. Upper abdomen: Significant gaseous distention of the colon. IMPRESSION: 1. Significant gaseous distention of the colon. 2. Clear lungs. Electronically signed by: Marie Culp M.D. 06/10/24 23:51 PM Abdomen/Pelvis CT 06/10/24 23:33 Exam(s): CT ABDOMEN + PELVIS With Contrast IV Amt: 91 cc opti 320 EXAM: CT Abdomen and Pelvis With Intravenous Contrast CLINICAL HISTORY: Reason for exam: vomiting, significant bowel angelo on CXR. TECHNIQUE: Axial computed tomography images of the abdomen and pelvis with intravenous contrast. CTDI is 7.76 mGy and DLP is 366.97 mGy-cm. Automated exposure control was utilized for the study. A dose lowering technique was utilized adhering to the principles of ALARA. CONTRAST: Patient received 91 cc opti 320 of IV contrast COMPARISON: No relevant prior studies available. FINDINGS: Study is degraded by motion. There are mild opacities at the left lung base which may reflect aspiration. Spleen is mildly enlarged. Liver, gallbladder, pancreas, adrenal glands, and kidneys are unremarkable. Aorta is normal in caliber. Superior mesenteric artery and superior mesenteric vein appear patent. Appendix is not visualized. There is gaseous distention of the colon without visible sigmoid volvulus. There are fluid-filled loops of small bowel without flo bowel dilatation. There is a small volume of pelvic ascites. There is no free air. Urinary bladder and prostate are unremarkable. Skeleton appears intact. IMPRESSION: 1. Gas distended colon without visible volvulus. 2. Fluid-filled small bowel without flo dilatation to suggest obstruction. Consider enteritis and correlate clinically. 3. Small volume of pelvic ascites. No free air. Electronically signed by: Marie Culp M.D. 06/11/24 00:28 AM ECG Additional Comments: ECG. Sinus tachycardia rate of 102. No acute ST changes seen. Code Status & VTE Plan VTE Prophylaxis Plan VTE Prophylaxis will be ordered: Yes
[2024-06-11] MEDS ORDERED: POLYETHYLENE (MIRALAX) 17 GM PACK PO PRN (03:04)
[2024-06-11] MEDS ORDERED: NITROGLYCERIN SL 0.4 MG/TAB TAB SL PRN (03:04)
[2024-06-11] MEDS ORDERED: ONDANSETRON INJ 2 MG/ML 2 ML VIAL IV PRN (03:04)
[2024-06-11] MEDS: ACETAMINOPHEN 1,000 MG/100 ML VIAL IV PRN (03:47)
[2024-06-11] MEDS: SODIUM CHLORIDE 0.9% 1,000 ML IV SCH (03:49)
[2024-06-11] MEDS: DOXYCYCLINE HYCLATE 100 MG in DEXTROSE 5% MINI-B 100 ML IV SCH (03:51)
[2024-06-11] MEDS ORDERED: AMPICILLIN/SULBACTAM SOD 1,500 MG/100 ML BAG IV SCH (06:00)
[2024-06-11] MEDS: AMPICILLIN/SULBACTAM SOD 3,000 MG/100 ML BAG IV SCH (06:09)
[2024-06-11] MEDS: LEVALBUTEROL HCL 0.63 MG/3 ML NEB NEB PRN (08:30)
--- NOTE | 2024-06-11 08:49 | XRay Report ---
XR chest 1V portable CLINICAL HISTORY: hypoxia, + course breath sounds COMPARISON STUDY: Chest radiograph June 10, 2024. FINDINGS: There is no pneumothorax or pleural effusion. Moderate elevation of the left hemidiaphragm is noted. Prominent gas-filled loops of bowel are partially imaged. Left basilar retrocardiac opacity is present. Right lung is clear. There is no evidence for pulmonary edema. Cardiomediastinal silhoue tte is normal. IMPRESSION: Elevation of the left hemidiaphragm with left basilar opacity. This favors pneumonia or aspiration pneumonitis. Atelectasis could appear similar. ACT 112: Negative or not required by law. Electronically signed by: Neno Alonzo M.D. 06/11/2024 8:48 AM
[2024-06-11] MEDS: BACLOFEN 10 MG TAB PO SCH (09:09)
[2024-06-11] MEDS: LANSOPRAZOLE 30 MG SOLTAB PO SCH (09:10)
[2024-06-11] MEDS: HEPARIN SOD 5,000 UNIT/0.5 ML VIAL SQ SCH (09:23)
[2024-06-11] MEDS: KETOROLAC TROMETHAMINE 15 MG/ML VIAL IV ONE ×4 (09:23→20:51)
[2024-06-11] MEDS: bisacodyL 5 MG TABEC PO SCH (09:23)
[2024-06-11 09:33] LABS: Appearance Urine Cloudy (Clear); Bacteria Urine Automated None Seen (None Seen); Bilirubin Urine Negative (Negative); Blood Urine 3+ (Negative); Cast Urine Automated 0-2 /lpf (0-2); Color Urine Dark Yellow; Epithelial Cell Urine Auto 0-2 /hpf (0-2); Glucose Urine UA Negative (Negative); Ketones Urine 1+ (Negative); Leukocyte Esterase Urine 1+ (Negative); Nitrite Urine Positive (Negative); Protein Urine 2+ (Negative); RBC Urine Automated >20 /hpf (0-2); Specific Gravity Urine 1.044 (1.000-1.030); Urobilinogen Urine Negative (Negative); pH Urine 6.5 (4.5-7.5)
--- NOTE | 2024-06-11 11:00 | Gastrointestinal Consultation ---
Date of Consultation June 11, 2024 Assessment & Plan (1) Mycoplasma pneumonia: 19 year old non-verbal male with history of CP, alpha thalassemia X-linked intellectual disability syndrome, contractures, swallowing dysfunction and on pured diet, GERD, constipation admitted w/ high fever, tachycardia and hypoxia w/ mycoplasma pneumonia - GI asked to evaluate given imaging w/ gaseous distention of colon and concern this is contributing to his respiratory status. CTAP w/o obvious sigmoid volvulus, dilation or obstruction. Abdominal examination reveals a soft, non-distended abdomen w/ good bowel signs without obvious discomfort to palpation. - KUB today to assess degree of distention/dilation as ordered by the primary team I spent a total of 45 minutes on the date of service in review of patient's record, and previously obtained information in person and appropriate medical visit, discussion and education of plan, with patient and/or caregiver, placing orders for tests/referral/procedures as medically necessary and documentation of pertinent clinical information in patient's medical records for their visit today. KUB reviewed w/ attending. Moderate gaseous distention of the colon is again noted, similar to prior CT. No dilated loops of small bowel are present. Elevation of the left hemidiaphragm with left basilar opacity is unchanged. There is no evidence for free air although sensitivity is diminished on supine exam. There is moderate stool within the rectum. Tap water enema now. May repeat this afternoon. Rectal tube. Daily KUBs. Supervising Physician Co-Signing Physician Notes I examined the patient and reviewed the medical record, laboratory data and imaging studies. I agree with the assessment and plan of care as suggested by the advanced practice provider. Patient appears comfortable at present I reviewed his abdominal film and there did not appear to be any very dilated loops his abdominal exam is also soft and there is no tenderness or masses that are appreciated he had a bowel movement yesterday given 2 tapwater enemas today at the current time I do not feel we need to do any sort of decompression I would repeat his KUB in a.m. and okay to give pured diet had a detailed discussion with the patient's family who were at bedside and answered all their questions History of Present Illness Reason for Consultation: colon distention Requesting Physician: Alex Bradshaw MD Attending Physician: Alex Bradshaw MD History of Present Illness 19 year old non-verbal male with history of CP, alpha thalassemia X-linked intellectual disability syndrome, contractures, swallowing dysfunction and on pured diet, GERD, constipation admitted w/ high fever, tachycardia and hypoxia w/ mycoplasma pneumonia. GI was asked to evaluate for colon distention. Pt was seen and evaluated, chart reviewed. 1-1 at bedside who aids in history. Family not present at time of my evaluation. Formal pulmonary consult pending given persistent hypoxia w/ O2 requirements of 9L but pulmonary had concerns that his colonic dilation was contributing to his respiratory symptoms. Pt abdomen soft on examination w/ normal bowel sounds. No obvious pain with palpation. Last BM was documented in the chart as 06/10. There was report of a seizure and emesis prior to hospital admission. No report of black/bloody stools or emesis. He is febrile this AM 37.8 w/ persistent tachycardia. He is on high-flow nasal cannula at 9L. Chest Xr 06/11: Elevation of the left hemidiaphragm with left basilar opacity. This favors pneumonia or aspiration pneumonitis. Atelectasis could appear similar. CTAP 06/10: There is gaseous distention of the colon without visible sigmoid volvulus. There are fluid-filled loops of small bowel without flo bowel dilatation. Chest Xr 06/10: Significant gaseous distention of the colon. Clear lungs. Allergies Allergy/AdvReac Type Severity Reaction Status Date / Time No Known Allergies Allergy Verified 09/01/23 06:23 Home Medications Medication Instructions Recorded Confirmed Type baclofen 10 mg tablet 10 mg PO UD 06/11/24 06/11/24 History bethanechol chloride 2.5 ml PO TID 06/11/24 06/11/24 History bisacodyl 5 mg tablet,delayed 5 mg PO DAILY 06/11/24 06/11/24 History release (Laxative (bisacodyl)) glycopyrrolate 1 mg tablet 2 mg PO BID 06/11/24 06/11/24 History lansoprazole 30 mg delayed 30 mg PO BID 06/11/24 06/11/24 History release,disintegrating tablet sulfamethoxazole 800 1 tab PO DIRECTED 06/11/24 06/11/24 History mg-trimethoprim 160 mg tablet Patient History Medical History (Updated 06/11/24 @ 13:06 by [place] Vallejo MD) GERD (gastroesophageal reflux disease) ATR-X syndrome History of anesthesia reaction diffulty waking during EGD to check for achalasia at [facility] 05/2023, no achalasia present per mom Scoliosis Incontinence History of hematuria Limited peripheral vision of both eyes Abnormal electroencephalogram (EEG) "abnormal neurological event" approximately one year ago, follows with Dr Ricki Humphreys at [facility] in [place] Cerebral palsy non verbal, able to follow some simple commands, mother will be present DOS Surgical History History of esophagogastroduodenoscopy (EGD) [facility], 05/[facility], difficulty waking patient Social History Smoking Status: Never smoker Second Hand Exposure: No; Do You Dip or Chew Tobacco: No; Hx Alcohol Use: No Hx Substance Use: No Preferred Language: Peruvian Communication Ability: Impaired Communication Ability Comment: mother states he can follow simple commands Career Representative Required: No Beliefs That Will Affect Care: None Current Living Situation: Family Other Information That Helps Us Care for You: No Feels Safe at Home: Declines to Answer Assistive Devices: Wheelchair Review of Systems Review of Systems: Unobtainable due to cognitive status Physical Exam Constitutional: WD/WN, vitals as above 1-1 at bedside Respiratory: normal respiratory effort Wearing high flow O2 - 9L Cardiovascular: Rate/Rhythm: + tachycardic Gastrointestinal (Abdomen): Percussion/Palpation: abdomen soft; abdomen nontender, no guarding and abdomen not rigid Skin: no rashes, warm and dry Results & Data Vital Signs (Past 12 Hours) Vital Signs Temp Pulse Pulse Resp BP BP Pulse Ox 06/11/24 10:29 06/11/24 08:32 115 H 17 90 06/11/24 07:57 06/11/24 07:48 37.8 C H 113 H 33 H 103/67 88 L 06/11/24 03:04 06/11/24 03:04 06/11/24 03:03 38.4 C H 123 H 22 117/71 98 06/11/24 02:30 126 H 18 119/90 98 06/11/24 01:00 137 H 18 113/88 95 06/11/24 00:35 119 H 18 114/91 97 06/11/24 00:00 112 H 16 111/73 93 06/10/24 23:31 97 H 16 118/91 93 06/10/24 23:02 101 H 28 H 93 06/10/24 22:55 92 Pulse Ox O2 Del Method O2 Del Method O2 Flow Rate 06/11/24 10:29 High Flow Nasal Cannula 9 06/11/24 08:32 Nasal Cannula 4 06/11/24 07:57 Nasal Cannula 3 06/11/24 07:48 Room Air 06/11/24 03:04 Room Air 06/11/24 03:04 98 Room Air 06/11/24 03:03 Room Air 06/11/24 02:30 Nasal Cannula 1 06/11/24 01:00 Nasal Cannula 2 06/11/24 00:35 06/11/24 00:00 Room Air 06/10/24 23:31 Room Air 06/10/24 23:02 Room Air 06/10/24 22:55 Room Air Laboratory Results 06/11/24 06/11/24 06/10/24 Range/Units 07:40 00:37 Unknown WBC 8.87 RBC 5.58 Hgb 14.7 Hct 45.3 MCV 81.2 MCH 26.3 MCHC 32.5 RDW Std Deviation 48.2 H RDW Coeff of Felix 16.7 H Plt Count 160 MPV Immature Gran % (Auto) 1.0 Neut % (Auto) 73.6 Lymph % (Auto) 8.7 Jenkins % (Auto) 14.0 Eos % (Auto) 2.4 Baso % (Auto) 0.3 Neut # (Auto) 6.53 H Lymph # (Auto) 0.77 L Jenkins # (Auto) 1.24 H Eos # (Auto) 0.21 Baso # (Auto) 0.03 Immature Gran # (Auto) 0.09 Absolute Nucleated RBC Nucleated RBC % (auto) Neutrophils % (Manual) Band Neutrophils % Lymphocytes % (Manual) Prolymphocyte % Reactive Lymphs % (Man) Monocytes % (Manual) Eosinophils % (Manual) Basophils % (Manual) Metamyelocytes % (Man) Myelocytes % (Man) Promyelocytes % (Man) Blast Cells % (Manual) Plasma Cell % (Manual) Other Cells % Nucleated RBC % Neutrophils # (Manual) Band Neutrophils # Total Absolute Neuts Lymphocytes # (Manual) Prolymphocyte # Reactive Lymphs # Total Abs Lymphocytes Monocytes # (Manual) Eosinophils # (Manual) Basophils # (Manual) Metamyelocytes # (Man) Myelocytes # (Manual) Promyelocytes # (Man) Blast Cells # (Man) Plasma Cell # (Manual) Other Cells # Nucleated RBCs # (Man) Hypersegmented Neuts Hyposegmented Neuts Hypogranular Neuts Large Granular Lymphs # Lrg Granular Lymphs Hairy Cells Smudge Cells Toxic Granulation Toxic Vacuolation 1+ Dohle Bodies Daphne Rods Platelet Estimate Decreased L Hypogranular Platelets Giant Platelets Platelet Satelliting RBC Morphology Polychromasia 1+ Hypochromasia Poikilocytosis Basophilic Stippling Anisocytosis Microcytosis Macrocytosis Spherocytes Pappenheimer Bodies Sickle Cells Target Cells Tear Drop Cells Ovalocytes Stomatocytes Brown-Maitland Bodies Echinocytes Acanthocytes (Spur) Rouleaux RBC Agglutinates Schistocytes Sezary Cell Sodium (136-145) mmol/L Potassium (3.5-5.1) mmol/L Chloride (98-107) mmol/L Carbon Dioxide (21-32) mmol/L Anion Gap (3-11) BUN (6-23) mg/dl Creatinine (0.6-1.4) mg/dl Est Cr Clr Drug Dosing ml/min eGFR BUN/Creatinine Ratio (10-20) Glucose (70-99(Fasting)) mg/dl Lactate (0.4-2.0) mmol/L Calcium (8.6-10.3) mg/dl Magnesium (1.7-2.4) mg/dl Total Bilirubin (0.2-1.0) mg/dl Direct Bilirubin (0-0.2) mg/dl AST (13-39) U/L ALT (7-52) U/L Alkaline Phosphatase (34-104) U/L Troponin I High Sens Total Protein (6.0-8.3) gm/dl Albumin (3.4-5.0) gm/dl Procalcitonin (0-0.5) ng/ml Urine Color Dark Yellow Urine Appearance Cloudy A (Clear) Urine pH 6.5 (4.5-7.5) Ur Specific [place] 1.044 H (1.000-1.030) Urine Protein 2+ H (Negative) Urine Glucose (UA) Negative (Negative) Urine Ketones 1+ H (Negative) Urine Blood 3+ H (Negative) Urine Nitrite Positive A (Negative) Urine Bilirubin Negative (Negative) Urine Urobilinogen Negative (Negative) Ur Leukocyte Esterase 1+ H (Negative) Urine WBC (Auto) 6-10 H (0-5) /hpf Urine RBC (Auto) >20 H (0-2) /hpf U Hyaline Cast (Auto) 0-2 (0-2) /lpf U Epithel Cells (Auto) 0-2 (0-2) /hpf Urine Bacteria (Auto) None Seen (None Seen) Adenovirus (PCR) Not Detected (NotDetected) B. pertussis DNA (PCR) Not Detected (NotDetected) B.parapertussis DNA PCR Not Detected (NotDetected) C. pneumoniae DNA (PCR) Not Detected (NotDetected) Coronavirus OC43 (PCR) Not Detected (NotDetected) Coronavirus HKU1 (PCR) Not Detected (NotDetected) Coronavirus 229E (PCR) Not Detected (NotDetected) SARS-CoV-2 (PCR) Not Detected (NotDetected) Coronavirus NL63 (PCR) Not Detected (NotDetected) Human Metapneumovir PCR Not Detected (NotDetected) Influenza Type A (PCR) Not Detected (NotDetected) Influenza Type B (PCR) Not Detected (NotDetected) M. pneumoniae (PCR) DETECTED A (NotDetected) Parainfluenza 1 (PCR) Not Detected (NotDetected) Parainfluenza 2 (PCR) Not Detected (NotDetected) Parainfluenza 3 (PCR) Not Detected (NotDetected) Parainfluenza 4 (PCR) Not Detected (NotDetected) RSV (PCR) Not Detected (NotDetected) Entero/Rhino (PCR) Not Detected (NotDetected) Blood Parasites ID 06/10/24 Range/Units 23:29 WBC Cancelled RBC Cancelled Hgb Cancelled Hct Cancelled MCV Cancelled MCH Cancelled MCHC Cancelled RDW Std Deviation Cancelled RDW Coeff of Felix Cancelled Plt Count Cancelled MPV Cancelled Immature Gran % (Auto) Cancelled Neut % (Auto) Cancelled Lymph % (Auto) Cancelled Jenkins % (Auto) Cancelled Eos % (Auto) Cancelled Baso % (Auto) Cancelled Neut # (Auto) Cancelled Lymph # (Auto) Cancelled Jenkins # (Auto) Cancelled Eos # (Auto) Cancelled Baso # (Auto) Cancelled Immature Gran # (Auto) Cancelled Absolute Nucleated RBC Cancelled Nucleated RBC % (auto) Cancelled Neutrophils % (Manual) Cancelled Band Neutrophils % Cancelled Lymphocytes % (Manual) Cancelled Prolymphocyte % Cancelled Reactive Lymphs % (Man) Cancelled Monocytes % (Manual) Cancelled Eosinophils % (Manual) Cancelled Basophils % (Manual) Cancelled Metamyelocytes % (Man) Cancelled Myelocytes % (Man) Cancelled Promyelocytes % (Man) Cancelled Blast Cells % (Manual) Cancelled Plasma Cell % (Manual) Cancelled Other Cells % Cancelled Nucleated RBC % Cancelled Neutrophils # (Manual) Cancelled Band Neutrophils # Cancelled Total Absolute Neuts Cancelled Lymphocytes # (Manual) Cancelled Prolymphocyte # Cancelled Reactive Lymphs # Cancelled Total Abs Lymphocytes Cancelled Monocytes # (Manual) Cancelled Eosinophils # (Manual) Cancelled Basophils # (Manual) Cancelled Metamyelocytes # (Man) Cancelled Myelocytes # (Manual) Cancelled Promyelocytes # (Man) Cancelled Blast Cells # (Man) Cancelled Plasma Cell # (Manual) Cancelled Other Cells # Cancelled Nucleated RBCs # (Man) Cancelled Hypersegmented Neuts Cancelled Hyposegmented Neuts Cancelled Hypogranular Neuts Cancelled Large Granular Lymphs Cancelled # Lrg Granular Lymphs Cancelled Hairy Cells Cancelled Smudge Cells Cancelled Toxic Granulation Cancelled Toxic Vacuolation Cancelled Dohle Bodies Cancelled Daphne Rods Cancelled Platelet Estimate Cancelled Hypogranular Platelets Cancelled Giant Platelets Cancelled Platelet Satelliting Cancelled RBC Morphology Cancelled Polychromasia Cancelled Hypochromasia Cancelled Poikilocytosis Cancelled Basophilic Stippling Cancelled Anisocytosis Cancelled Microcytosis Cancelled Macrocytosis Cancelled Spherocytes Cancelled Pappenheimer Bodies Cancelled Sickle Cells Cancelled Target Cells Cancelled Tear Drop Cells Cancelled Ovalocytes Cancelled Stomatocytes Cancelled Brown-Maitland Bodies Cancelled Echinocytes Cancelled Acanthocytes (Spur) Cancelled Rouleaux Cancelled RBC Agglutinates Cancelled Schistocytes Cancelled Sezary Cell Cancelled Sodium 137 (136-145) mmol/L Potassium 4.1 (3.5-5.1) mmol/L Chloride 105 (98-107) mmol/L Carbon Dioxide 26 (21-32) mmol/L Anion Gap 6 (3-11) BUN 11 (6-23) mg/dl Creatinine 0.79 (0.6-1.4) mg/dl Est Cr Clr Drug Dosing 92.8 ml/min eGFR 130.43 BUN/Creatinine Ratio 13.9 (10-20) Glucose 97 (70-99(Fasting)) mg/dl Lactate 1.7 (0.4-2.0) mmol/L Calcium 9.0 (8.6-10.3) mg/dl Magnesium 1.8 (1.7-2.4) mg/dl Total Bilirubin 0.7 (0.2-1.0) mg/dl Direct Bilirubin 0.1 (0-0.2) mg/dl AST 23 (13-39) U/L ALT 28 (7-52) U/L Alkaline Phosphatase 139 H (34-104) U/L Troponin I High Sens TNP Total Protein 6.8 (6.0-8.3) gm/dl Albumin 4.3 (3.4-5.0) gm/dl Procalcitonin 0.46 (0-0.5) ng/ml Urine Color Urine Appearance (Clear) Urine pH (4.5-7.5) Ur Specific [place] (1.000-1.030) Urine Protein (Negative) Urine Glucose (UA) (Negative) Urine Ketones (Negative) Urine Blood (Negative) Urine Nitrite (Negative) Urine Bilirubin (Negative) Urine Urobilinogen (Negative) Ur Leukocyte Esterase (Negative) Urine WBC (Auto) (0-5) /hpf Urine RBC (Auto) (0-2) /hpf U Hyaline Cast (Auto) (0-2) /lpf U Epithel Cells (Auto) (0-2) /hpf Urine Bacteria (Auto) (None Seen) Adenovirus (PCR) (NotDetected) B. pertussis DNA (PCR) (NotDetected) B.parapertussis DNA PCR (NotDetected) C. pneumoniae DNA (PCR) (NotDetected) Coronavirus OC43 (PCR) (NotDetected) Coronavirus HKU1 (PCR) (NotDetected) Coronavirus 229E (PCR) (NotDetected) SARS-CoV-2 (PCR) (NotDetected) Coronavirus NL63 (PCR) (NotDetected) Human Metapneumovir PCR (NotDetected) Influenza Type A (PCR) (NotDetected) Influenza Type B (PCR) (NotDetected) M. pneumoniae (PCR) (NotDetected) Parainfluenza 1 (PCR) (NotDetected) Parainfluenza 2 (PCR) (NotDetected) Parainfluenza 3 (PCR) (NotDetected) Parainfluenza 4 (PCR) (NotDetected) RSV (PCR) (NotDetected) Entero/Rhino (PCR) (NotDetected) Blood Parasites ID Cancelled PG Care Time/CCT Total # of Minutes Spent Total Time Spent with Patient: Total time spent is greater than 50% in coordination of care (as documented) at patient's floor/unit and/or counseling patient: Coding Level of Care Code 33310 INT INP/OBS CARE MIN Diagnoses Mycoplasma pneumonia J15.7
[2024-06-11 11:23] LABS: Calcium 8.6 mg/dl (8.6-10.3); Creatinine Clr Calc Pharmacy 92.7 ml/min; Magnesium 1.6 mg/dl (1.7-2.4); Phosphorus 2.9 mg/dl (2.5-4.9); Potassium 3.4 mmol/L (3.5-5.1)
[2024-06-11 11:34] LABS: Basophils # (auto) 0.03 K/uL (0.00-0.20); Basophils % (auto) 0.4 %; Hematocrit (blood only) 39.6 % (42.0-52.0); Hemoglobin 13.2 g/dl (14.0-18.0); Immature Granulocytes # (auto) 0.04 K/uL (0.01-0.20); Immature Granulocytes % (auto) 0.5 %; Lymphocytes # (auto) 0.47 K/uL (1.20-3.40); Lymphocytes % (auto) 5.5 %; Mean Corpuscular Hemoglobin 26.8 pg (25.0-34.0); Mean Corpuscular Hgb Conc 33.3 g/dL (32.0-36.0); Mean Corpuscular Volume 80.5 fL (80.0-100.0); Monocytes # (auto) 0.97 K/uL (0.11-0.59); Monocytes % (auto) 11.4 %; Neutrophils # (auto) 7.02 K/uL (1.40-6.50); Neutrophils % (auto) 82.2 %; Platelet Count 128 K/uL (130-400); RDW Coefficient of Variation 16.3 % (11.5-14.5); RDW Standard Deviation 47.4 fL (36.4-46.3); Red Blood Count 4.92 M/uL (4.70-6.10); White Blood Count 8.53 K/ul (4.8-10.8)
--- NOTE | 2024-06-11 11:37 | XRay Report ---
KUB CLINICAL HISTORY: colon distention COMPARISON STUDY: CT of the abdomen and pelvis June 10, 2024. FINDINGS: Moderate gaseous distention of the colon is again noted. This is similar to prior CT. No di lated loops of small bowel are present. Incidental note is made of contrast within the bladder from r ecent contrast-enhanced CT. Elevation of the left hemidiaphragm with left basilar opacity is unchange d. There is no evidence for free air although sensitivity is diminished on supine exam. There is mode rate stool within the rectum. IMPRESSION: 1. No significant change in moderate colonic gaseous distention since prior CT. This remains nonspeci fic although may be chronic or represent an ileus. Continued radiographic follow-up is recommended. 2. No radiographic evidence for a small bowel obstruction. 3. Moderate amount of stool within the colon. ACT 112: Negative or not required by law. Electronically signed by: Neno Alonzo M.D. 06/11/2024 11:36 AM
[2024-06-11] MEDS ORDERED: POTASSIUM CHLORIDE / WTR 10 MEQ/100 ML PLCT IV SCH ×2 (11:45→12:30)
[2024-06-11] MEDS ORDERED: POTASSIUM CHLORIDE CRTAB 20 MEQ TABCR PO ONE ×2 (12:00→12:45)
[2024-06-11] MEDS: GLYCOPYRROLATE 1 MG TAB PO SCH (13:01)
--- NOTE | 2024-06-11 13:12 | Pulmonary Consultation ---
Date of Consultation June 11, 2024 Assessment & Plan (1) Mycoplasma pneumonia: (2) Acute UTI: (3) Colon distention: Plan Impression: 19-year-old male admitted with fevers and signs of systemic inflammatory response syndrome. He has minimal opacity identified on his CT pulmonary parenchyma and I suspect that his urine may be the offending source. No stones were identified but the patient does have a history of Klebsiella in the past. Recommendations: 1. Potential mycoplasma/aspiration pneumonia: Unasyn/doxycycline should be adequate antimicrobial coverage given the atypical nature of mycoplasma. Alternative options would be fluoroquinolone or macrolides. Will defer to primary service treatment of the patient's urine. 2. The elevated hemidiaphragm and colonic distention are likely compromising the patient's respiratory status and may be driving some of his tachypnea. No evidence of hypercarbia on his chemistry panel however if issues persist would have a low threshold for proceeding with arterial venous blood gas. 3. The patient's current mental status makes it impossible for him to use incentive spirometry so this will be discontinued. In addition, secretions management does not appear to be an issue so I do not think he needs vest therapy or suctioning at this time. These orders will be discontinued. 4. Recurrent aspiration would be a significant concern. Apparently there were discussions about a G-tube in the past. Repeat swallow evaluation may be appropriate as if the patient has recurrent aspiration issues, this may compromise long-term pulmonary status. 5. Recommend weaning oxygen as tolerated. The patient does not use oxygen at baseline. He may require oxygen to go home. 6. Management patient's other issues per primary admitting service. The above recommendations and plan were extensively discussed with patient's mother at bedside. Will continue to follow with you. Feel free to contact us with questions or concerns History of Present Illness Attending Physician: Alex Bradshaw MD History of Present Illness Asked by hospitalist to assist in evaluation management of this nonverbal patie nt admitted with potential aspiration event. History is obtained from discussion with the mother at the bedside is the primary caregiver as well as review of electronic medical record. Patient is a 19-year-old male with a history of severe cerebral palsy. He has been followed at [facility] for neurological issues as well as [facility]. He apparently has had multiple speech therapy evaluations in the past and there has been some discussion about G-tube placement however his outpatient launching pad mechanic did not feel that it was necessary as of yet. The patient was brought to the hospital here due to fever tachycardia and hypoxemia. He had been admitted recently to [facility] middle of May with what appeared to be seizure-like activity. We do not have records from that evaluation. It is unclear whether an EEG was performed at that point in time. He was not on antiepileptic medication. Here he was found to have a positive urinalysis as well as a bio Priccut PCR positive for mycoplasma. CT of the abdomen and pelvis did demonstrate a very small area of patchy parenchymal density within the superior segment of the left lower lobe. The patient was initiated on antibiotics and admitted to the hospital. Pulmonary was consulted today due to increasing oxygen requirement. He has been seen by gastroenterology as well as he has a severely dilated colon. He apparently has had issues with constipation in the past as well as decreased motility and carries a diagnosis of achalasia. His outpatient bowel regimen includes daily MiraLAX, Dulcolax, and as needed enemas/suppositories. He typically has a bowel movement about once daily or every other day. He is now down to oxygen at 2 L/min. He does not use oxygen at baseline. Mother is concerned about tachypnea although his respiratory rate on my exam is about 20 and some respiratory accessory muscle use Allergies Allergy/AdvReac Type Severity Reaction Status Date / Time No Known Allergies Allergy Verified 09/01/23 06:23 Home Medications Medication Instructions Recorded Confirmed Type baclofen 10 mg tablet 10 mg PO UD 06/11/24 06/11/24 History bethanechol chloride 2.5 ml PO TID 06/11/24 06/11/24 History bisacodyl 5 mg tablet,delayed 5 mg PO DAILY 06/11/24 06/11/24 History release (Laxative (bisacodyl)) glycopyrrolate 1 mg tablet 2 mg PO BID 06/11/24 06/11/24 History lansoprazole 30 mg delayed 30 mg PO BID 06/11/24 06/11/24 History release,disintegrating tablet sulfamethoxazole 800 1 tab PO DIRECTED 06/11/24 06/11/24 History mg-trimethoprim 160 mg tablet Patient History Medical History (Updated 06/11/24 @ 13:06 by Houston Vallejo MD) GERD (gastroesophageal reflux disease) ATR-X syndrome History of anesthesia reaction diffulty waking during EGD to check for achalasia at [facility] 05/2023, no achalasia present per mom Scoliosis Incontinence History of hematuria Limited peripheral vision of both eyes Abnormal electroencephalogram (EEG) "abnormal neurological event" approximately one year ago, follows with Dr Ricki Humphreys at [facility] in [place] Cerebral palsy non verbal, able to follow some simple commands, mother will be present DOS Surgical History History of esophagogastroduodenoscopy (EGD) [facility], 05/2023, difficulty waking patient Social History Smoking Status: Never smoker Second Hand Exposure: No; Do You Dip or Chew Tobacco: No; Hx Alcohol Use: No Hx Substance Use: No Preferred Language: Persian Communication Ability: Impaired Communication Ability Comment: mother states he can follow simple commands Horticultural Therapist Required: No Beliefs That Will Affect Care: None Current Living Situation: Family Other Information That Helps Us Care for You: No Feels Safe at Home: Declines to Answer Assistive Devices: Wheelchair Review of Systems Review of Systems: Unobtainable due to cognitive status Physical Exam Constitutional: Nonverbal. Significant contractures noted. No obvious distress. On 2 L nasal cannula Neck: trachea midline, no thyromegaly Respiratory: + tachypneic; no respiratory distress, n o labored breathing and no cough Auscultation: + rhonchi; no crackles and no wheezes Cardiovascular: RRR, no murmur, no edema Gastrointestinal (Abdomen): normal bowel sounds, soft, nontender, no hepatosplenomegaly Musculoskeletal: Extremities: extremities normal to inspection Skin: no rashes, warm and dry Neurologic: Nonverbal. Lymphatic: no cervical lymphadenopathy Results & Data Results & Data Vital Signs (Past 12 Hours) Vital Signs Temp Pulse Pulse Resp BP BP Pulse Ox 06/11/24 10:57 37.4 C 124 H 40 H 107/73 93 06/11/24 10:42 36 H 91 06/11/24 10:29 06/11/24 08:32 115 H 17 90 06/11/24 07:57 06/11/24 07:48 37.8 C H 113 H 33 H 103/67 88 L 06/11/24 03:04 06/11/24 03:04 06/11/24 03:03 38.4 C H 123 H 22 117/71 98 06/11/24 02:30 126 H 18 119/90 98 Pulse Ox O2 Del Method O2 Del Method O2 Flow Rate 06/11/24 10:57 Nasal Cannula 06/11/24 10:42 High Flow Nasal Cannula 7 06/11/24 10:29 High Flow Nasal Cannula 9 06/11/24 08:32 Nasal Cannula 4 06/11/24 07:57 Nasal Cannula 3 06/11/24 07:48 Room Air 06/11/24 03:04 Room Air 06/11/24 03:04 98 Room Air 06/11/24 03:03 Room Air 06/11/24 02:30 Nasal Cannula 1 Critical Care Results & Data Vital Signs (Past 12 Hours) Vital Signs Temp Pulse Pulse Resp BP BP Pulse Ox 06/11/24 10:57 37.4 C 124 H 40 H 107/73 93 06/11/24 10:42 36 H 91 06/11/24 10:29 06/11/24 08:32 115 H 17 90 06/11/24 07:57 06/11/24 07:48 37.8 C H 113 H 33 H 103/67 88 L 06/11/24 03:04 06/11/24 03:04 06/11/24 03:03 38.4 C H 123 H 22 117/71 98 06/11/24 02:30 126 H 18 119/90 98 Pulse Ox O2 Del Method O2 Del Method O2 Flow Rate 06/11/24 10:57 Nasal Cannula 06/11/24 10:42 High Flow Nasal Cannula 7 06/11/24 10:29 High Flow Nasal Cannula 9 06/11/24 08:32 Nasal Cannula 4 06/11/24 07:57 Nasal Cannula 3 06/11/24 07:48 Room Air 06/11/24 03:04 Room Air 06/11/24 03:04 98 Room Air 06/11/24 03:03 Room Air 06/11/24 02:30 Nasal Cannula 1 Lab & Micro Results (Past 24 Hours) RBC 4.92 M/uL (4.70-6.10) 06/11/24 WBC 8.53 K/ul (4.8-10.8) 06/11/24 Hgb 13.2 g/dl (14.0-18.0) L 06/11/24 Hct 39.6 % (42.0-52.0) L 06/11/24 MCV 80.5 fL (80.0-100.0) 06/11/24 MCH 26.8 pg (25.0-34.0) 06/11/24 MCHC 33.3 g/dL (32.0-36.0) 06/11/24 RDW Standard Deviation 47.4 fL (36.4-46.3) H 06/11/24 RDW Coefficient of Variation 16.3 % (11.5-14.5) H 06/11/24 Plt Count 128 K/uL (130-400) L 06/11/24 Neutrophils (%) (Auto) 82.2 % 06/11/24 Lymphocytes (%) (Auto) 5.5 % 06/11/24 Monocytes # (Auto) 0.97 K/uL (0.11-0.59) H 06/11/24 Eosinophils # (Auto) 0.00 K/uL (0.00-0.50) 06/11/24 Immature Granulocyte % (Auto) 0.5 % 06/11/24 Neutrophils # (Auto) 7.02 K/uL (1.40-6.50) H 06/11/24 Lymphocytes # (Auto) 0.47 K/uL (1.20-3.40) L 06/11/24 Monocytes # (Auto) 0.97 K/uL (0.11-0.59) H 06/11/24 Eosinophils # (Auto) 0.00 K/uL (0.00-0.50) 06/11/24 Basophils # (Auto) 0.03 K/uL (0.00-0.20) 06/11/24 Immature Granulocyte # (Auto) 0.04 K/uL (0.01-0.20) 4 Polychromasia 1+ 06/11/24 Toxic Vacuolation 1+ 06/11/24 Na 137 mmol/L (136-145) 06/11/24 K 3.4 mmol/L (3.5-5.1) L 06/11/24 Cl 106 mmol/L (98-107) 06/11/24 CO2 23 mmol/L (21-32) 06/11/24 Anion Gap 8 (3-11) 06/11/24 BUN 9 mg/dl (6-23) 06/11/24 Creatinine 0.82 mg/dl (0.6-1.4) 06/11/24 BUN/Creatinine Ratio 11.0 (10-20) 06/11/24 Glu 115 mg/dl (70-99(Fasting)) H 06/11/24 Ca 8.6 mg/dl (8.6-10.3) 06/11/24 Phosphorus Level 2.9 mg/dl (2.5-4.9) 06/11/24 Total Bilirubin 0.7 mg/dl (0.2-1.0) 06/10/24 Direct Bilirubin 0.1 mg/dl (0-0.2) 06/10/24 AST 23 U/L (13-39) 06/10/24 ALT 28 U/L (7-52) 06/10/24 Alkaline Phosphatase 139 U/L (34-104) H 06/10/24 TP 6.8 gm/dl (6.0-8.3) 06/10/24 Albumin 4.3 gm/dl (3.4-5.0) 06/10/24 Mg 1.6 mg/dl (1.7-2.4) L 06/11/24 10:46 Calcium Level 8.6 mg/dl (8.6-10.3) 06/11/24 10:46 Diagnostic Findings (Past 24 Hours) Chest X-Ray 06/10/24 22:47 Exam(s): XR CXR 1 VIEW EXAM: XR Chest, 1 View CLINICAL HISTORY: Reason for exam: Sepsis. TECHNIQUE: Frontal view of the chest. COMPARISON: No relevant prior studies available. FINDINGS: Lungs: Clear lungs. No consolidation. Pleural space: Unremarkable. No pleural effusion or pneumothorax. Heart: Unremarkable. No cardiomegaly or pulmonary vascular congestion. Bones/joints: No acute fracture. No dislocation. Upper abdomen: Significant gaseous distention of the colon. IMPRESSION: 1. Significant gaseous distention of the colon. 2. Clear lungs. Electronically signed by: Marie Culp M.D. 06/10/24 23:51 PM Abdomen/Pelvis CT 06/10/24 23:33 Exam(s): CT ABDOMEN + PELVIS With Contrast IV Amt: 91 cc opti 320 EXAM: CT Abdomen and Pelvis With Intravenous Contrast CLINICAL HISTORY: Reason for exam: vomiting, significant bowel angelo on CXR. TECHNIQUE: Axial computed tomography images of the abdomen and pelvis with intravenous contrast. CTDI is 7.76 mGy and DLP is 366.97 mGy-cm. Automated exposure control was utilized for the study. A dose lowering technique was utilized adhering to the principles of ALARA. CONTRAST: Patient received 91 cc opti 320 of IV contrast COMPARISON: No relevant prior studies available. FINDINGS: Study is degraded by motion. There are mild opacities at the left lung base which may reflect aspiration. Spleen is mildly enlarged. Liver, gallbladder, pancreas, adrenal glands, and kidneys are unremarkable. Aorta is normal in caliber. Superior mesenteric artery and superior mesenteric vein appear patent. Appendix is not visualized. There is gaseous distention of the colon without visible sigmoid volvulus. There are fluid-filled loops of small bowel without flo bowel dilatation. There is a small volume of pelvic ascites. There is no free air. Urinary bladder and prostate are unremarkable. Skeleton appears intact. IMPRESSION: 1. Gas distended colon without visible volvulus. 2. Fluid-filled small bowel without flo dilatation to suggest obstruction. Consider enteritis and correlate clinically. 3. Small volume of pelvic ascites. No free air. Electronically signed by: Marie Culp M.D. 06/11/24 00:28 AM Chest X-Ray 06/11/24 07:59 XR chest 1V portable CLINICAL HISTORY: hypoxia, + course breath sounds COMPARISON STUDY: Chest radiograph June 10, 2024. FINDINGS: There is no pneumothorax or pleural effusion. Moderate elevation of the left hemidiaphragm is noted. Prominent gas-filled loops of bowel are partially imaged. Left basilar retrocardiac opacity is present. Right lung is clear. There is no evidence for pulmonary edema. Cardiomediastinal silhouette is normal. IMPRESSION: Elevation of the left hemidiaphragm with left basilar opacity. This favors pneumonia or aspiration pneumonitis. Atelectasis could appear similar. ACT 112: Negative or not required by law. Electronically signed by: Neno Alonzo M.D. 06/11/2024 8:48 AM KUB X-Ray 06/11/24 10:19 KUB CLINICAL HISTORY: colon distention COMPARISON STUDY: CT of the abdomen and pelvis June 10, 2024. FINDINGS: Moderate gaseous distention of the colon is again noted. This is similar to prior CT. No dilated loops of small bowel are present. Incidental note is made of contrast within the bladder from recent contrast-enhanced CT. Elevation of the left hemidiaphragm with left basilar opacity is unchanged. There is no evidence for free air although sensitivity is diminished on supine exam. There is moderate stool within the rectum. IMPRESSION: 1. No significant change in moderate colonic gaseous distention since prior CT. This remains nonspecific although may be chronic or represent an ileus. Continued radiographic follow-up is recommended. 2. No radiographic evidence for a small bowel obstruction. 3. Moderate amount of stool within the colon. ACT 112: Negative or not required by law. Electronically signed by: Neno Alonzo M.D. 06/11/2024 11:36 AM I & O Totals 24 Hours 06/10/24 06/11/24 06/12/24 06:59 06:59 06:59 Intake Total 1450 / 1450 513.333 / 513.333 Balance 1450 / 1450 513.333 / 513.333 Cumulative 06/10/24 22:17 thru 06/11/24 12:53 Intake Total 1963.333 Balance 1963.333 RT Ventilator Mngmt (Last Documented) Ventilator Ordered Settings Respiratory Rate 40 06/11/24 10:57 Ventilator - PT Measurements Respiratory Rate 40 PG Care Time/CCT Total # of Minutes Spent Total Time Spent with Patient: Total time spent is greater than 50% in coordination of care (as documented) at patient's floor/unit and/or counseling patient: Coding Level of Care Code 08648 IN/OBS CONSULT LVL 4,60M Diagnoses Mycoplasma pneumonia J15.7 Acute UTI N39.0 Colon distention K63.89
[2024-06-11] MEDS: MAGNESIUM SULFATE / D5W 1 GM/100 ML BAG IV ONE (13:26)
[2024-06-11] MEDS: POTASSIUM CHLORIDE / WTR 10 MEQ/100 ML PLCT IV SCH (13:46)
[2024-06-11] MEDS ORDERED: Nursing to Pharmacy Communication SCH (15:30)
--- NOTE | 2024-06-11 15:50 | Electrocardiogram Report ---
Test Reason : Blood Pressure : */* mmHG Vent. Rate : 102 BPM Atrial Rate : 102 BPM P-R Int : 148 ms QRS Dur : 92 ms QT Int : 354 ms P-R-T Axes : 54 10 40 degrees QTcB Int : 461 ms Sinus tachycardia Possible Inferior infarct , age undetermined Abnormal ECG No previous ECGs available Confirmed by Ac Dennis ([id number]) on 06/11/2024 3:50:24 PM Referred By: REFERRED SELF Confirmed By: Ac Dennis
[2024-06-11] MEDS ORDERED: PHENAZOPYRIDINE HCL 200 MG TAB PO PRN (17:47)
[2024-06-11] MEDS: MoRPHine SULFATE 2 MG/ML CARP IV STA (18:00)
[2024-06-11] MEDS: cefTRIAXone SODIUM 2,000 MG/50 ML BAG IV SCH (20:25)
[2024-06-12] MEDS: diphenhydrAMINE 50 MG/ML VIAL IV STA (06:17)
--- NOTE | 2024-06-12 07:42 | XRay Report ---
EXAM: XR KUB/Abdomen 1 view CLINICAL HISTORY: F/U COLON DISTENTION JTF/TGB TECHNIQUE: X-ray images of the abdomen were obtained in AP and oblique views. COMPARISON: Prior CT dated 06/10/2024 for comparison. FINDINGS: Gas Pattern: Gas filled dilated colon of maximum caliber 7-8 cm. No gas in the rectum and possibly fecal loaded. Small bowel loops normal in caliber. Soft Tissues: Soft tissues of the abdomen appear normal without evidence of masses or calcifications. Liver, spleen, and kidneys are of normal size and position. Mild scoliotic curvature in lower thoracic spine to the left. IMPRESSION: 1. Gas filled dilated colon of maximum caliber 7-8 cm. 2. No gas in the rectum and possibly fecal loaded. 3. Unchanged appearance compared to prior CT. Electronically signed by Calista Saavedra 06-12-2024 07:42 AM
--- NOTE | 2024-06-12 08:25 | Pulmonology Progress Note ---
Date of Service June 12, 2024 Assessment & Plan (1) Mycoplasma pneumonia: (2) Acute UTI: (3) Colon distention: Plan Impression: 19-year-old male admitted with fevers and signs of systemic inflammatory response syndrome. He has minimal opacity identified on his CT pulmonary parenchyma and I suspect that his urine may be the offending source. No stones were identified but the patient does have a history of Klebsiella in the past. Recommendations: 1. Potential mycoplasma/aspiration pneumonia: Unasyn/doxycycline should be adequate antimicrobial coverage given the atypical nature of mycoplasma. Alternative options would be fluoroquinolone or macrolides. Will defer to primary service treatment of the patient's urine. 2. The elevated hemidiaphragm and colonic distention are likely compromising the patient's respiratory status and may be driving some of his tachypnea. No evidence of hypercarbia on his chemistry panel however if issues persist would have a low threshold for proceeding with arterial venous blood gas. 3. The patient's current mental status makes it impossible for him to use incentive spirometry so this will be discontinued. In addition, secretions management does not appear to be an issue so I do not think he needs vest therapy or suctioning at this time. These orders will be discontinued. 4. Recurrent aspiration would be a significant concern. Apparently there were discussions about a G-tube in the past. Repeat swallow evaluation may be appropriate as if the patient has recurrent aspiration issues, this may compromise long-term pulmonary status. 5. Recommend weaning oxygen as tolerated. The patient does not use oxygen at baseline. He may require oxygen to go home. 6. Management patient's other issues per primary admitting service. Thank you for allowing us participate in the care of this patient. Pulmonary m edicine will sign off at this time. Admission and Anticipated Discharge Date Admission Date: June 11, 2024 Subjective Patient seen and evaluated at bedside. No adverse events overnight. His oxygen has been weaned to 2 L. Remains with intermittent fevers Review of Systems Review of Systems: Unable to assess. Physical Exam Physical Exam: VITAL SIGNS Vital signs and nursing notes were reviewed. GENERAL 19-year-old male appearing his stated age who is in no acute distress. SKIN Without rashes or lesions. NOSE Midline and without cyanosis. MOUTH/OROPHARYNX Without perioral cyanosis. NECK Neck with FROM. LUNGS Chest wall evaluation demonstrates normal chest wall A:P diameter. Auscultation reveals diminished breath sounds. CARDIAC RRR with S1/S2. No murmur, rubs, or gallops appreciated. ABDOMEN Abdominal inspection demonstrates a flat abdomen. BS normoactive all four quadrants. No tenderness, palpable masses, or ascites noted. Results & Data Results & Data Vital Signs (Past 12 Hours) Vital Signs Temp Pulse Pulse Resp BP BP Pulse Ox 06/12/24 07:32 37.0 C 96 H 18 114/71 96 06/12/24 07:26 120 H 06/12/24 05:35 37.8 C H 06/12/24 05:15 38.2 C H 06/12/24 04:16 37.4 C 121 H 18 133/93 93 06/11/24 23:47 06/11/24 23:41 37.1 C 106 H 18 114/78 97 06/11/24 21:44 116 H O2 Del Method O2 Flow Rate 06/12/24 07:32 Nasal Cannula 2 06/12/24 07:26 06/12/24 05:35 06/12/24 05:15 06/12/24 04:16 Nasal Cannula 2 06/11/24 23:47 Nasal Cannula 3 06/11/24 23:41 Nasal Cannula 3 06/11/24 21:44 PG Care Time/CCT Total # of Minutes Spent Total Time Spent with Patient: Total time spent is greater than 50% in coordination of care (as documented) at patient's floor/unit and/or counseling patient: Coding Level of Care Code 98585 SUB INP/OBS CARE 08/11MIN Diagnoses Mycoplasma pneumonia J15.7 Acute UTI N39.0 Colon distention K63.89
--- NOTE | 2024-06-12 09:24 | Gastroenterology Progress Note ---
Date of Service June 12, 2024 Assessment & Plan (1) Mycoplasma pneumonia: Plan: 19 year old non-verbal male with history of CP, alpha thalassemia X-linked intellectual disability syndrome, contractures, swallowing dysfunction and on pured diet, GERD, constipation admitted w/ high fever, tachycardia and hypoxia w/ mycoplasma pneumonia - GI asked to evaluate given imaging w/ gaseous distention of colon and concern this is contributing to his respiratory status. CTAP w/o obvious sigmoid volvulus, dilation or obstruction. Abdominal examination reveals a soft, non-distended abdomen w/ good bowel signs without obvious discomfort to palpation. KUB this AM looks improved from initial Chest XR w/ gas filled dilated colon of maximum caliber 7-8 cm - Start Miralax 1 capful once daily. - Pending clinical response, may increase this medication to twice daily - May give an additional tap water enema today - Recall GI as needed I spent a total of 30 minutes on the date of service in review of patient's record, and previously obtained information in person and appropriate medical visit, discussion and education of plan, with patient and/or caregiver, placing orders for tests/referral/procedures as medically necessary and documentation of pertinent clinical information in patient's medical records for their visit today. Admission and Anticipated Discharge Date Admission Date: June 11, 2024 Supervising Physician Co-Signing Physician Notes I examined the patient and reviewed the medical record, laboratory data and imaging studies. I agree with the assessment and plan of care as suggested by the advanced practice provider. Patient appears the same as before his abdomen is soft no tenderness I reviewed his x-ray which did not appear changed from before I suspect he has close chronic colonic dilation he is on a home regimen of Dulcolax and MiraLAX I would continue with the same home regimen of MiraLAX twice a day and Dulcolax daily can give enema x 1 to see if he has a bowel movement but at the current time he is not eating also so I would expect he would not be having too many bowel movements had a long discussion with the patient's mother about his motility and gastrointestinal issues and is followed at [facility] I would recommend that he should have follow-up with them and they may consider some sort of a feeding tube whether it is a G or J-tube will sign off please recall if there are any further questions Subjective Pt was seen and evaluated, chart reviewed. No family at bedside this AM. KUB reviewed. Review of Systems Review of Systems: Unobtainable due to cognitive status Physical Exam Constitutional: WD/WN, vitals as above Respiratory: normal respiratory effort Gastrointestinal (Abdomen): normal bowel sounds, soft, nontender, no hepatosplenomegaly Skin: no rashes, warm and dry Results & Data Results & Data Vital Signs (Past 12 Hours) Vital Signs Temp Pulse Pulse Resp BP BP Pulse Ox 06/12/24 07:32 37.0 C 96 H 18 114/71 96 06/12/24 07:26 120 H 06/12/24 05:35 37.8 C H 06/12/24 05:15 38.2 C H 06/12/24 04:16 37.4 C 121 H 18 133/93 93 06/11/24 23:47 06/11/24 23:41 37.1 C 106 H 18 114/78 97 06/11/24 21:44 116 H O2 Del Method O2 Flow Rate 06/12/24 07:32 Nasal Cannula 2 06/12/24 07:26 06/12/24 05:35 06/12/24 05:15 06/12/24 04:16 Nasal Cannula 2 06/11/24 23:47 Nasal Cannula 3 06/11/24 23:41 Nasal Cannula 3 06/11/24 21:44 Laboratory Results 06/11/24 06/11/24 06/11/24 Range/Units 14:25 10:46 07:40 WBC 8.53 (4.8-10.8) K/ul RBC 4.92 (4.70-6.10) M/uL Hgb 13.2 L (14.0-18.0) g/dl Hct 39.6 L (42.0-52.0) % MCV 80.5 (80.0-100.0) fL MCH 26.8 (25.0-34.0) pg MCHC 33.3 (32.0-36.0) g/dL RDW Std Deviation 47.4 H (36.4-46.3) fL RDW Coeff of Felix 16.3 H (11.5-14.5) % Plt Count 128 L (130-400) K/uL Immature Gran % (Auto) 0.5 % Neut % (Auto) 82.2 % Lymph % (Auto) 5.5 % [place] % (Auto) 11.4 % Eos % (Auto) 0.0 % Baso % (Auto) 0.4 % Neut # (Auto) 7.02 H (1.40-6.50) K/uL Lymph # (Auto) 0.47 L (1.20-3.40) K/uL Shawnee # (Auto) 0.97 H (0.11-0.59) K/uL Eos # (Auto) 0.00 (0.00-0.50) K/uL Baso # (Auto) 0.03 (0.00-0.20) K/uL Immature Gran # (Auto) 0.04 (0.01-0.20) K/uL Sodium 137 (136-145) mmol/L Potassium 3.4 L (3.5-5.1) mmol/L Chloride 106 (98-107) mmol/L Carbon Dioxide 23 (21-32) mmol/L Anion Gap 8 (3-11) BUN 9 (6-23) mg/dl Creatinine 0.82 (0.6-1.4) mg/dl Est Cr Clr Drug Dosing 92.7 ml/min eGFR 128.97 BUN/Creatinine Ratio 11.0 (10-20) Glucose 115 H (70-99(Fasting)) mg/dl Lactate 1.1 (0.4-2.0) mmol/L Calcium 8.6 (8.6-10.3) mg/dl Phosphorus 2.9 (2.5-4.9) mg/dl Magnesium 1.6 L (1.7-2.4) mg/dl Urine Color Dark Yellow Urine Appearance Cloudy A (Clear) Urine pH 6.5 (4.5-7.5) Ur Specific Mabie 1.044 H (1.000-1.030) Urine Protein 2+ H (Negative) Urine Glucose (UA) Negative (Negative) Urine Ketones 1+ H (Negative) Urine Blood 3+ H (Negative) Urine Nitrite Positive A (Negative) Urine Bilirubin Negative (Negative) Urine Urobilinogen Negative (Negative) Ur Leukocyte Esterase 1+ H (Negative) Urine WBC (Auto) 6-10 H (0-5) /hpf Urine RBC (Auto) >20 H (0-2) /hpf U Hyaline Cast (Auto) 0-2 (0-2) /lpf U Epithel Cells (Auto) 0-2 (0-2) /hpf Urine Bacteria (Auto) None Seen (None Seen) PG Care Time/CCT Total # of Minutes Spent Total Time Spent with Patient: Total time spent is greater than 50% in coordination of care (as documented) at patient's floor/unit and/or counseling patient: Coding Level of Care Code 34699 SUB INP/OBS CARE 08/11MIN Diagnoses Mycoplasma pneumonia J15.7
[2024-06-12 10:01] LABS: Basophils # (auto) 0.01 K/uL (0.00-0.20); Basophils % (auto) 0.2 %; Hematocrit (blood only) 36.8 % (42.0-52.0); Hemoglobin 12.3 g/dl (14.0-18.0); Immature Granulocytes # (auto) 0.02 K/uL (0.01-0.20); Immature Granulocytes % (auto) 0.5 %; Lymphocytes # (auto) 0.56 K/uL (1.20-3.40); Lymphocytes % (auto) 12.6 %; Mean Corpuscular Hemoglobin 26.6 pg (25.0-34.0); Mean Corpuscular Hgb Conc 33.4 g/dL (32.0-36.0); Mean Corpuscular Volume 79.7 fL (80.0-100.0); Neutrophils # (auto) 3.44 K/uL (1.40-6.50); Neutrophils % (auto) 77.7 %; Platelet Count 102 K/uL (130-400); RDW Coefficient of Variation 16.4 % (11.5-14.5); RDW Standard Deviation 47.5 fL (36.4-46.3); Red Blood Count 4.62 M/uL (4.70-6.10); White Blood Count 4.43 K/ul (4.8-10.8)
[2024-06-12 10:22] LABS: BUN Creatinine Ratio 13.8 (10-20); Calcium 8.1 mg/dl (8.6-10.3); Creatinine Clr Calc Pharmacy 123.1 ml/min; Magnesium 1.7 mg/dl (1.7-2.4); Phosphorus 2.2 mg/dl (2.5-4.9); Potassium 3.6 mmol/L (3.5-5.1)
--- NOTE | 2024-06-12 10:31 | Hospitalist Progress Note ---
Date of Service June 12, 2024 Assessment & Plan (1) Mycoplasma pneumonia: Plan: 19-year-old male with past medical history significant for cerebral palsy, alpha thalassemia X-linked intellectual disability syndrome, flexion contractures, swallowing dysfunction and on pured diet, GERD, constipation, nonverbal, nonambulatory status lives with his mother was brought in because of high fever, tachycardia and hypoxia. Currently father is in the room who does not live with the son. Able to talk to the mother on the phone. Patient was recently admitted to [facility] on May 31 due to seizures. As per mother the doctors thought the seizures were probably because of missing his baclofen. Mother thinks he missed only couple of doses. No seizure medication was prescribed. Mother thinks he might of aspirated during the episode. Today patient was having some cough. And having fever of 105 degrees. And heart rates 120s. When checked his oxygen level saturations were 83% and mother put him on oxygen. Patient usually does not use oxygen. With oxygen Sats came up to mid 90s as per mother. Currently patient's heart rate still in 130s. Blood pressure is okay. Saturating 95% 2 L. He seems comfortable. No recent nausea or vomiting. He generally constipated. His BioFire came back positive for mycoplasma pneumonia. Chest x-ray looks okay. No leukocytosis. CT abdomen pelvis gas-distended colon without visible volvulus and possible enteritis. As per mother patient last night had hematuria and mother called the urologist on- call and was prescribed Bactrim which the patient has not taken it yet and she also gave him Pyridium from his previous prescription. Patient followed with urology in September 2023 for gross hematuria and had cystoscopy which was unremarkable and urine cytology was negative for urothelial carcinoma. Has history of UTI with Klebsiella treated with Bactrim in the past. Sepsis - fever, tachycardia Mycoplasma pneumonia UTI Hematuria Fever tachycardia and hypoxia Initially saturating on 2 L -> the required 9L yesterday and pulmonary medicine was consulted. Currently on RA and saturating 92% Chest x-ray obtained - Elevation of the left hemidiaphragm with left basilar opacity. This favors pneumonia or aspiration pneumonitis. Atelectasis could appear similar. Possible aspiration as per mother as swallowing difficulty and recently had a seizure Continue ceftriaxone + doxycycline - discussed with pharmacy and w/ [employer] and urology (reviewed urine cultx from 08/2023 when pt was growing Klebsiella, also requested urine cultx from [facility] - recent admission - awaiting to hear back) Cont. doxy for 5 days to cover mycoplasma Follow urine cultx Cont. to closely monitor Fever - recurrent - required tylenol, toradol - cooling blanket used - cont. abx, IVF, tylenol, toradol Colon dilation - obtained KUB and consulted with GI - abdomen soft on exam - cont. to closely monitor - consider enema, consider decompression Nutrition At home on pured diet as per father Clears for now History of cerebral palsy History of intellectual disability History of swallowing dysfunction Constipation 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 GERD On lansoprazole DVT prophylaxis - Heparin subcu on hold, as plt count down, SCDs ordered, monitor plt count Disposition Telemetry Full code. Admission and Anticipated Discharge Date Admission Date: June 11, 2024 Subjective Pt seen in follow up of sepsis, likely secondary to UTI, also positive for mycoplasma Yesterday, clearly in distress, coughing and grimacing, also required 9L of suppl. O2. Had persistent fever, tachycardia. Currently pt seems improved, but still tachycardic and febrile this AM Sitting up in bed in [facility], appears much more comfortable than yesterday. Currently without any suppl. O2 and smiling. Cooperative w/ exam Review of Systems Review of Systems: Unobtainable due to cognitive status Physical Exam Physical Exam: General- young M in NAD Head- atraumatic Eyes- PERRL. Neck- supple, no JVD. Lungs- clear to auscultation no wheezing, mild basilar crackles Heart- regular rhythm; tachycardia, no murmur, no gallop. Abdomen- normal bowel sounds, soft, nontender, no distension Extremities- no pretibial edema, contractures of extremities seen Neuro- alert, awake, non verbal. Results & Data Results & Data Vital Signs (Past 12 Hours) Vital Signs Temp Pulse Pulse Resp BP BP Pulse Ox 06/12/24 08:30 06/12/24 07:32 37.0 C 96 H 18 114/71 96 06/12/24 07:26 120 H 06/12/24 05:35 37.8 C H 06/12/24 05:15 38.2 C H 06/12/24 04:16 37.4 C 121 H 18 133/93 93 06/11/24 23:47 06/11/24 23:41 37.1 C 106 H 18 114/78 97 O2 Del Method O2 Flow Rate 06/12/24 08:30 Nasal Cannula 2 06/12/24 07:32 Nasal Cannula 2 06/12/24 07:26 06/12/24 05:35 06/12/24 05:15 06/12/24 04:16 Nasal Cannula 2 06/11/24 23:47 Nasal Cannula 3 06/11/24 23:41 Nasal Cannula 3 Laboratory Results 06/12/24 06/11/24 06/11/24 Range/Units 09:41 14:25 10:46 WBC 4.43 L 8.53 (4.8-10.8) K/ul RBC 4.62 L 4.92 (4.70-6.10) M/uL Hgb 12.3 L 13.2 L (14.0-18.0) g/dl Hct 36.8 L 39.6 L (42.0-52.0) % MCV 79.7 L 80.5 (80.0-100.0) fL MCH 26.6 26.8 (25.0-34.0) pg MCHC 33.4 33.3 (32.0-36.0) g/dL RDW Std Deviation 47.5 H 47.4 H (36.4-46.3) fL RDW Coeff of Felix 16.4 H 16.3 H (11.5-14.5) % Plt Count 102 L 128 L (130-400) K/uL Immature Gran % (Auto) 0.5 0.5 % Neut % (Auto) 77.7 82.2 % Lymph % (Auto) 12.6 5.5 % Robertson % (Auto) 9.0 11.4 % Eos % (Auto) 0.0 0.0 % Baso % (Auto) 0.2 0.4 % Neut # (Auto) 3.44 7.02 H (1.40-6.50) K/uL Lymph # (Auto) 0.56 L 0.47 L (1.20-3.40) K/uL Robertson # (Auto) 0.40 0.97 H (0.11-0.59) K/uL Eos # (Auto) 0.00 0.00 (0.00-0.50) K/uL Baso # (Auto) 0.01 0.03 (0.00-0.20) K/uL Immature Gran # (Auto) 0.02 0.04 (0.01-0.20) K/uL Sodium 141 137 (136-145) mmol/L Potassium 3.6 3.4 L (3.5-5.1) mmol/L Chloride 112 H 106 (98-107) mmol/L Carbon Dioxide 21 23 (21-32) mmol/L Anion Gap 8 8 (3-11) BUN 9 9 (6-23) mg/dl Creatinine 0.65 0.82 (0.6-1.4) mg/dl Est Cr Clr Drug Dosing 123.1 92.7 ml/min eGFR 138.34 128.97 BUN/Creatinine Ratio 13.8 11.0 (10-20) Glucose 92 115 H (70-99(Fasting)) mg/dl Lactate 1.1 (0.4-2.0) mmol/L Calcium 8.1 L 8.6 (8.6-10.3) mg/dl Phosphorus 2.2 L 2.9 (2.5-4.9) mg/dl Magnesium 1.7 1.6 L (1.7-2.4) mg/dl Medications Administered Current Inpatient Medications Baclofen (Baclofen 10 Mg Tab) 20 mg PO TID@0800,1500,2000 [facility] Stop: 07/11/24 07:59 Last Admin: 06/12/24 09:01 Dose: 20 mg Bisacodyl (Bisacodyl 5 Mg Tabec) 5 mg PO DAILY RC Stop: 07/11/24 08:59 Last Admin: 06/12/24 09:06 Dose: Not Given Glycopyrrolate (Glycopyrrolate 1 Mg Tab) 2 mg PO BID RC Stop: 07/11/24 08:59 Last Admin: 06/12/24 09:01 Dose: 2 mg Heparin Sodium (Porcine) (Heparin Sod 5,000 Unit/0.5 Ml Vial) 5,000 units SQ Q12 RC Stop: 07/11/24 08:59 Last Admin: 06/11/24 09:23 Dose: 5,000 units Acetaminophen (Ofirmev) 1,000 mg in 100 mls @ 400 mls/hr IV Q8H PRN PRN Reason: Pain or Fever Stop: 06/14/24 03:03 Last Infusion: 06/12/24 05:30 Dose: Infused Doxycycline Hyclate 100 mg/ (Dextrose) 100 mls @ 50 mls/hr IV Q12H [facility] Stop: 06/16/24 03:59 Last Infusion: 06/12/24 06:42 Dose: Infused Ceftriaxone Sodium (Rocephin) 2,000 mg in 50 mls @ 100 mls/hr IV Q24H [facility] Stop: 06/21/24 20:59 Last Infusion: 06/11/24 20:55 Dose: Infused Magnesium Sulfate/Dextrose (Magnesium Sulfate / D5w) 1 gm in 100 mls @ 50 mls/hr IV ONE ONE Stop: 06/12/24 12:30 Lansoprazole (Lansoprazole 30 Mg Soltab) 30 mg PO BID [facility] Stop: 07/11/24 08:59 Last Admin: 06/12/24 09:01 Dose: 30 mg Levalbuterol HCl (Levalbuterol Hcl 0.63 Mg/3 Ml Neb) 0.63 mg NEB Q4H PRN; Protocol PRN Reason: Shortness Of Breath Or Wheezing Stop: 07/11/24 03:03 Last Admin: 06/11/24 08:30 Dose: 0.63 mg Magnesium Oxide (Magnesium Oxide 400 Mg Tab) 400 mg PO BID [facility] Stop: 07/12/24 10:44 Miscellaneous (Bethanechol Chloride 1 Mg/Ml: Order Awaiting Action) 1 each N/A QS [facility] Stop: 07/11/24 07:59 Last Admin: 06/12/24 09:05 Dose: Not Given Nitroglycerin (Nitroglycerin Sl 0.4 Mg/Tab Tab) 0.4 mg SL Q5M PRN PRN Reason: Chest Pain Stop: 07/11/24 03:03 Ondansetron HCl (Ondansetron Inj 2 Mg/Ml 2 Ml Vial) 4 mg IV Q6H PRN PRN Reason: Nausea Stop: 07/11/24 03:03 Phenazopyridine HCl (Phenazopyridine Hcl 200 Mg Tab) 200 mg PO TID PRN PRN Reason: Dysuria Stop: 07/11/24 17:46 Polyethylene Glycol (Polyethylene (Miralax) 17 Gm Pack) 17 gm PO DAILY PRN PRN Reason: Constipation Stop: 07/11/24 03:03
[2024-06-12] MEDS: MAGNESIUM OXIDE 400 MG TAB PO SCH (10:47)
[2024-06-12] MEDS: MAGNESIUM SULFATE / D5W 1 GM/100 ML BAG IV ONE (10:47)
--- NOTE | 2024-06-12 18:22 | Electrocardiogram Report ---
Test Reason : Blood Pressure : */* mmHG Vent. Rate : 116 BPM Atrial Rate : 116 BPM P-R Int : 146 ms QRS Dur : 92 ms QT Int : 310 ms P-R-T Axes : 37 3 26 degrees QTcB Int : 430 ms Poor data quality, interpretation may be adversely affected Sinus tachycardia Otherwise normal ECG When compared with ECG of 10-Jun-2024 23:06, Borderline criteria for Inferior infarct are no longer Present Confirmed by Ac Dennis ([id number]) on 06/12/2024 6:21:37 PM Referred By: REFERRED SELF Confirmed By: Ac Dennis
--- NOTE | 2024-06-12 22:07 | XRay Report ---
Exam(s): XR CXR 1 VIEW EXAM: XR Chest, 1 View CLINICAL HISTORY: Reason for exam: aspiration. TECHNIQUE: Frontal view of the chest. COMPARISON: 06/11/2024 FINDINGS: Lungs: Exam limited secondary to shallow inspiration. Left lower lobe atelectasis new since prior exam. . Pleural space: Unremarkable. No pneumothorax. Heart: Unremarkable. No cardiomegaly. Mediastinum: Unremarkable. Normal mediastinal contour. Bones/joints: Unremarkable. No acute fracture. IMPRESSION: Limited exam Left lower lobe atelectasis Elevation of left hemidiaphragm Electronically signed by: Curtis Bacon MD 06/12/24 22:06 PM
[2024-06-13 07:16] LABS: Hematocrit (blood only) 35.4 % (42.0-52.0); Hemoglobin 11.7 g/dl (14.0-18.0); Mean Corpuscular Hemoglobin 26.2 pg (25.0-34.0); Mean Corpuscular Hgb Conc 33.1 g/dL (32.0-36.0); Mean Corpuscular Volume 79.2 fL (80.0-100.0); Mean Platelet Volume 11.9 fL (9.4-12.4); Platelet Count 120 K/uL (130-400); RDW Coefficient of Variation 16.6 % (11.5-14.5); RDW Standard Deviation 47.7 fL (36.4-46.3); Red Blood Count 4.47 M/uL (4.70-6.10); White Blood Count 3.34 K/ul (4.8-10.8)
[2024-06-13 07:20] LABS: BUN Creatinine Ratio 14.3 (10-20); Basophils # (auto) 0.01 K/uL (0.00-0.20); Basophils % (auto) 0.3 %; Calcium 7.8 mg/dl (8.6-10.3); Creatinine Clr Calc Pharmacy 127.5 ml/min; Eosinophils # (auto) 0.01 K/uL (0.00-0.50); Eosinophils % (auto) 0.3 %; Immature Granulocytes # (auto) 0.02 K/uL (0.01-0.20); Immature Granulocytes % (auto) 0.6 %; Lymphocytes # (auto) 0.85 K/uL (1.20-3.40); Lymphocytes % (auto) 25.4 %; Magnesium 1.6 mg/dl (1.7-2.4); Monocytes # (auto) 0.49 K/uL (0.11-0.59); Monocytes % (auto) 14.7 %; Neutrophils # (auto) 1.96 K/uL (1.40-6.50); Neutrophils % (auto) 58.7 %; Phosphorus 2.3 mg/dl (2.5-4.9); Potassium 3.2 mmol/L (3.5-5.1)
--- NOTE | 2024-06-13 13:50 | Hospitalist Progress Note ---
Date of Service June 13, 2024 Assessment & Plan (1) Mycoplasma pneumonia: Plan: per Dr. Bradshaw's notes with addendum: 19-year-old male with past medical history significant for cerebral palsy, alpha thalassemia X-linked intellectual disability syndrome, flexion contractures, swallowing dysfunction and on pured diet, GERD, constipation, nonverbal, nonambulatory status lives with his mother was brought in because of high fever, tachycardia and hypoxia. Currently father is in the room who does not live with the son. Able to talk to the mother on the phone. Patient was recently admitted to [facility] on May 31 due to seizures. As per mother the doctors thought the seizures were probably because of missing his baclofen. Mother thinks he missed only couple of doses. No seizure medication was prescribed. Mother thinks he might of aspirated during the episode. Today patient was having some cough. And having fever of 105 degrees. And heart rates 120s. When checked his oxygen level saturations were 83% and mother put him on oxygen. Patient usually does not use oxygen. With oxygen Sats came up to mid 90s as per mother. Currently patient's heart rate still in 130s. Blood pressure is okay. Saturating 95% 2 L. He seems comfortable. No recent nausea or vomiting. He generally constipated. His BioFire came back positive for mycoplasma pneumonia. Chest x-ray looks okay. No leukocytosis. CT abdomen pelvis gas-distended colon without visible volvulus and possible enteritis. As per mother patient last night had hematuria and mother called the urologist on- call and was prescribed Bactrim which the patient has not taken it yet and she also gave him Pyridium from his previous prescription. Patient followed with urology in September 2023 for gross hematuria and had cystoscopy which was unremarkable and urine cytology was negative for urothelial carcinoma. Has history of UTI with Klebsiella treated with Bactrim in the past. Sepsis - fever, tachycardia Mycoplasma pneumonia UTI Hematuria Fever tachycardia and hypoxia Initially saturating on 2 L -> the required 9L yesterday and pulmonary medicine was consulted. Currently on RA and saturating 92% Chest x-ray obtained - Elevation of the left hemidiaphragm with left basilar opacity. This favors pneumonia or aspiration pneumonitis. Atelectasis could appear similar. 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 doxy for 5 days to cover mycoplasma Follow urine cultx Cont. to closely monitor 06/13 - afebrile, on room air - blood culture, urine culture: negative continue Ceftri + Doxy Fever - recurrent - required tylenol, toradol - cooling blanket used - cont. abx, IVF, tylenol, toradol Colon dilation, Ileus - obtained KUB and consulted with GI - abdomen soft on exam - cont. to closely monitor - consider enema, consider decompression 06/13 (+) large BM this morning KUB: Increased diffuse prominent intestinal aeration consistent with ileus. There is decreased rectal stool. -- NPO IV fluids replace K and Mg -- will notify GI Possible Aspiration -- from reflux, ileus? -- change Prevacid to Protonix IV BID management of Ileus per above -- Speech Tx on board Nutrition At home on pured diet as per father -- NPO for now as per above History of cerebral palsy History of intellectual disability History of swallowing dysfunction Constipation 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 GERD On lansoprazole DVT prophylaxis - Heparin subcu Disposition Telemetry Full code. plan of care discussed with patient's mother at bedside in detail and at length all questions answered she is understanding, agreeable, comfortable with the plan of care Admission and Anticipated Discharge Date Admission Date: June 11, 2024 Subjective ff up for pneumonia ,etc noted to have possible aspiration overnight seen sitting up in bed, comfortable speech tx eval in progress patient's mother Shayna at bedside patient appears comfortable, not in distress has occasional coughs no signs of pain Review of Systems Review of Systems: all noted and negative except for above Physical Exam Physical Exam: General- awake, non verbal, smiling, breathing with no effort or accessory muscle use Eyes- anicteric Neck- no JVD Lungs- clear breath sounds bilaterally, no rales/wheezes Heart- normal rate, regular rhythm; no murmurs Abdomen- normal bowel sounds, nondistended, soft, nontender Extremities- no pretibial edema, no calf tenderness Neuro- alert, non verbal, no new gross focal neurologic deficits Skin- warm & dry Results & Data Results & Data Vital Signs (Past 12 Hours) Vital Signs Temp Pulse Pulse Resp BP BP Pulse Ox 06/13/24 11:30 36.8 C 95 H 18 112/58 L 96 06/13/24 08:00 06/13/24 07:58 36.7 C 91 H 20 116/72 96 06/13/24 07:00 94 H 06/13/24 03:50 36.9 C 100 H 22 98/66 L 92 06/13/24 03:00 Pulse Ox O2 Del Method O2 Del Method 06/13/24 11:30 Room Air 06/13/24 08:00 Room Air 06/13/24 07:58 Room Air 06/13/24 07:00 06/13/24 03:50 Room Air 06/13/24 03:00 91 Room Air all noted and reviewed including below
[2024-06-13] MEDS: D5NSS + 20MEQ KCL 20 MEQ/1,000 ML BAG IV SCH (16:18)
[2024-06-13] MEDS: POTASSIUM CHLORIDE / WTR 10 MEQ/100 ML PLCT IV SCH (16:18)
--- NOTE | 2024-06-13 16:27 | XRay Report ---
EXAM: Radiograph of the Abdomen 1 View INDICATION: Colonic distention. TECHNIQUE: Frontal supine view of the abdomen/pelvis. COMPARISON: 06/12/2024 FINDINGS: Limitations: None. Gastrointestinal tract: Decreased for rectal stool noted. Increased diffuse small bowel aeration and mild distention. Stable colonic distention. Organs: Visualized organ shadows appear grossly normal. Bones/joints: No fracture, erosion or dislocation. Soft tissues: No abnormality noted. No radiopaque foreign body noted. IMPRESSION: Increased diffuse prominent intestinal aeration consistent with ileus. There is decreased rectal stool. ACT 112: Negative or not required by law. Electronically signed by Evelin Grady 06-13-2024 4:25 PM
[2024-06-13] MEDS: MAGNESIUM SULFATE / D5W 1 GM/100 ML BAG IV ONE (18:43)
[2024-06-13] MEDS: PANTOprazole 40 MG/10 ML SYR IV SCH (20:29)
[2024-06-13 22:28] LABS: Adenovirus F 40/41 PCR Not Detected (NotDetected); Astrovirus PCR Not Detected (NotDetected); Campylobacter PCR Not Detected (NotDetected); Cryptosporidium PCR Not Detected (NotDetected); Cyclospora cayetanensis PCR Not Detected (NotDetected); Entamoeba histolytica PCR Not Detected (NotDetected); Enteroaggregative E.coli(EAEC) Not Detected (NotDetected); Enteropathogenic E.coli (EPEC) Not Detected (NotDetected); Enterotoxigenic E.coli (ETEC) Not Detected (NotDetected); Giardia lamblia PCR Not Detected (NotDetected); Norovirus GI/GII PCR Not Detected (NotDetected); Plesiomonas shigelloides PCR Not Detected (NotDetected); Rotavirus A PCR Not Detected (NotDetected); Salmonella PCR Not Detected (NotDetected); Sapovirus PCR Not Detected (NotDetected); Shiga-like Toxin E.coli (STEC) Not Detected (NotDetected); Shigella/Enteroinvasive E.coli Not Detected (NotDetected); Vibrio cholerae PCR Not Detected (NotDetected); Vibrio species PCR Not Detected (NotDetected); Yersinia enterocolitica PCR Not Detected (NotDetected)
[2024-06-14] MEDS ORDERED: Nursing to Pharmacy Communication SCH ×2 (01:30→19:30)
[2024-06-14 07:27] LABS: BUN Creatinine Ratio 15.7 (10-20); Creatinine Clr Calc Pharmacy 156.2 ml/min; Magnesium 1.9 mg/dl (1.7-2.4); Potassium 3.6 mmol/L (3.5-5.1)
--- NOTE | 2024-06-14 11:54 | Electrocardiogram Report ---
Test Reason : Blood Pressure : */* mmHG Vent. Rate : 90 BPM Atrial Rate : 90 BPM P-R Int : 150 ms QRS Dur : 94 ms QT Int : 376 ms P-R-T Axes : 47 23 29 degrees QTcB Int : 459 ms Normal sinus rhythm Incomplete right bundle branch block Possible Inferior infarct (cited on or before 13-Jun-2024) Abnormal ECG When compared with ECG of 13-Jun-2024 05:49, (unconfirmed) No significant change was found Confirmed by Sánchez Gomez ([id number]) on 06/14/2024 11:54:15 AM Referred By: REFERRED SELF Confirmed By: Sánchez Gomez
--- NOTE | 2024-06-14 18:46 | Hospitalist Progress Note ---
Date of Service June 14, 2024 Assessment & Plan (1) Mycoplasma pneumonia: Plan: per Dr. Bradshaw's notes with addendum: 19-year-old male with past medical history significant for cerebral palsy, alpha thalassemia X-linked intellectual disability syndrome, flexion contractures, swallowing dysfunction and on pured diet, GERD, constipation, nonverbal, nonambulatory status lives with his mother was brought in because of high fever, tachycardia and hypoxia. Currently father is in the room who does not live with the son. Able to talk to the mother on the phone. Patient was recently admitted to [facility] on May 31 due to seizures. As per mother the doctors thought the seizures were probably because of missing his baclofen. Mother thinks he missed only couple of doses. No seizure medication was prescribed. Mother thinks he might of aspirated during the episode. Today patient was having some cough. And having fever of 105 degrees. And heart rates 120s. When checked his oxygen level saturations were 83% and mother put him on oxygen. Patient usually does not use oxygen. With oxygen Sats came up to mid 90s as per mother. Currently patient's heart rate still in 130s. Blood pressure is okay. Saturating 95% 2 L. He seems comfortable. No recent nausea or vomiting. He generally constipated. His BioFire came back positive for mycoplasma pneumonia. Chest x-ray looks okay. No leukocytosis. CT abdomen pelvis gas-distended colon without visible volvulus and possible enteritis. As per mother patient last night had hematuria and mother called the urologist on- call and was prescribed Bactrim which the patient has not taken it yet and she also gave him Pyridium from his previous prescription. Patient followed with urology in September 2023 for gross hematuria and had cystoscopy which was unremarkable and urine cytology was negative for urothelial carcinoma. Has history of UTI with Klebsiella treated with Bactrim in the past. Sepsis - fever, tachycardia Mycoplasma pneumonia UTI Hematuria Fever tachycardia and hypoxia Initially saturating on 2 L -> the required 9L yesterday and pulmonary medicine was consulted. Currently on RA and saturating 92% Chest x-ray obtained - Elevation of the left hemidiaphragm with left basilar opacity. This favors pneumonia or aspiration pneumonitis. Atelectasis could appear similar. Possible aspiration as per mother as swallowing difficulty and recently had a seizure Continue ceftriaxone + doxycycline - discussed with pharmacy and w/ surgical elastic knitter hand frame and urology (reviewed urine cultx from 08/2023 when pt was growing Klebsiella, also requested urine cultx from [facility] - recent admission - awaiting to hear back) Cont. doxy for 5 days to cover mycoplasma Follow urine cultx Cont. to closely monitor 06/13 - afebrile, on room air - blood culture, urine culture: negative continue Ceftri + Doxy 06/14 - afebrile on room air - cultures negative - continue Ceftri + Doxy Fever - recurrent - required tylenol, toradol - cooling blanket used - cont. abx, IVF, tylenol, toradol 06/14 afebrile Colon dilation, Ileus - obtained KUB and consulted with GI - abdomen soft on exam - cont. to closely monitor - consider enema, consider decompression 06/13 (+) large BM this morning KUB: Increased diffuse prominent intestinal aeration consistent with ileus. There is decreased rectal stool. -- NPO IV fluids replace K and Mg -- will notify GI 06/14 (+) BMs continue NPO for now IV fluids electrolytes ok Possible Aspiration -- from reflux, ileus? -- change Prevacid to Protonix IV BID management of Ileus per above -- Speech Tx on board 06/14 repeat speech eval done today no flo aspiration noted but recommends NPO for now until video swallow eval on Tuesday to be cautious Nutrition At home on pured diet as per father -- NPO for now as per above -- will discuss with Logistics Team Lead re: possible PPN initiation while NPO History of cerebral palsy History of intellectual disability History of swallowing dysfunction Constipation 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 GERD On lansoprazole DVT prophylaxis - Heparin subcu Disposition Telemetry Full code. Admission and Anticipated Discharge Date Admission Date: June 11, 2024 Subjective ff up for pneumonia, etc seen resting in bed, comfortable watching TV no signs of pain, distress (+) BMs no other symptoms Review of Systems Review of Systems: all noted and negative except for above Physical Exam Physical Exam: General-alert, not in distress, breathing with no effort or accessory muscle use Eyes- anicteric Neck- no JVD Lungs- clear breath sounds bilaterally, no rales/wheezes Heart- normal rate, regular rhythm; no murmurs Abdomen- normal bowel sounds, nondistended, soft, no tenderness Extremities- no pretibial edema, no calf tenderness Neuro-no new gross focal neurologic deficits Skin- warm & dry Results & Data Results & Data Vital Signs (Past 12 Hours) Vital Signs Temp Pulse Pulse Resp BP BP Pulse Ox 06/14/24 15:40 36.4 C L 90 18 142/81 H 93 06/14/24 14:34 91 H 06/14/24 11:08 58 L 06/14/24 10:51 36.6 C 98 H 18 101/69 93 06/14/24 09:57 06/14/24 07:51 36.4 C L 79 16 101/70 95 O2 Del Method 06/14/24 15:40 Room Air 06/14/24 14:34 06/14/24 11:08 06/14/24 10:51 Room Air 06/14/24 09:57 Room Air 06/14/24 07:51 Room Air all noted and reviewed including below (1) Mycoplasma pneumonia Laterality: bilateral Lung location: lower lobe of lung Qualified Code(s): J15.7 - Pneumonia due to Mycoplasma pneumoniae
[2024-06-15 07:28] LABS: BUN Creatinine Ratio 10.2 (10-20); Calcium 8.6 mg/dl (8.6-10.3); Creatinine Clr Calc Pharmacy 134.7 ml/min; Magnesium 1.8 mg/dl (1.7-2.4); Potassium 3.5 mmol/L (3.5-5.1)
--- NOTE | 2024-06-15 14:40 | Discharge Summary ---
Discharge Summary Date of Service June 15, 2024 Principal Dx & Hospital Course #1 = Principal Diagnosis (1) Mycoplasma pneumonia: per Dr. Bradshaw's notes with addendum: 19-year-old male with past medical history significant for cerebral palsy, alpha thalassemia X-linked intellectual disability syndrome, flexion contractures, swallowing dysfunction and on pured diet, GERD, constipation, nonverbal, nonambulatory status lives with his mother was brought in because of high fever, tachycardia and hypoxia. Currently father is in the room who does not live with the son. Able to talk to the mother on the phone. Patient was recently admitted to [facility] on May 31 due to seizures. As per mother the doctors thought the seizures were probably because of missing his baclofen. Mother thinks he missed only couple of doses. No seizure medication was prescribed. Mother thinks he might of aspirated during the episode. Today patient was having some cough. And having fever of 105 degrees. And heart rates 120s. When checked his oxygen level saturations were 83% and mother put him on oxygen. Patient usually does not use oxygen. With oxygen Sats came up to mid 90s as per mother. Currently patient's heart rate still in 130s. Blood pressure is okay. Saturating 95% 2 L. He seems comfortable. No recent nausea or vomiting. He generally constipated. His BioFire came back positive for mycoplasma pneumonia. Chest x-ray looks okay. No leukocytosis. CT abdomen pelvis gas-distended colon without visible volvulus and possible enteritis. As per mother patient last night had hematuria and mother called the urologist on- call and was prescribed Bactrim which the patient has not taken it yet and she also gave him Pyridium from his previous prescription. Patient followed with urology in September 2023 for gross hematuria and had cystoscopy which was unremarkable and urine cytology was negative for urothelial carcinoma. Has history of UTI with Klebsiella treated with Bactrim in the past. Sepsis - fever, tachycardia Mycoplasma pneumonia UTI Hematuria Fever tachycardia and hypoxia Initially saturating on 2 L -> the required 9L yesterday and pulmonary medicine was consulted. Currently on RA and saturating 92% Chest x-ray obtained - Elevation of the left hemidiaphragm with left basilar opacity. This favors pneumonia or aspiration pneumonitis. Atelectasis could appear similar. Possible aspiration as per mother as swallowing difficulty and recently had a seizure Continue ceftriaxone + doxycycline - discussed with pharmacy and w/ kindergarten paraprofessional and urology (reviewed urine cultx from 08/2023 when pt was growing Klebsiella, also requested urine cultx from [facility] - recent admission - awaiting to hear back) Cont. doxy for 5 days to cover mycoplasma Follow urine cultx Cont. to closely monitor 06/13 - afebrile, on room air - blood culture, urine culture: negative continue Ceftri + Doxy 06/14 - afebrile on room air - cultures negative - continue Ceftri + Doxy Fever - recurrent - required tylenol, toradol - cooling blanket used - cont. abx, IVF, tylenol, toradol 06/14 afebrile Colon dilation, Ileus - obtained KUB and consulted with GI - abdomen soft on exam - cont. to closely monitor - consider enema, consider decompression 06/13 (+) large BM this morning KUB: Increased diffuse prominent intestinal aeration consistent with ileus. There is decreased rectal stool. -- NPO IV fluids replace K and Mg -- will notify GI 06/14 (+) BMs continue NPO for now IV fluids electrolytes ok Possible Aspiration -- from reflux, ileus? -- change Prevacid to Protonix IV BID management of Ileus per above -- Speech Tx on board 06/14 repeat speech eval done today no flo aspiration noted but recommends NPO for now until video swallow eval on Tuesday to be cautious Nutrition At home on pured diet as per father -- NPO for now as per above -- will discuss with Laboratory Engineer re: possible PPN initiation while NPO History of cerebral palsy History of intellectual disability History of swallowing dysfunction Constipation 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 GERD On lansoprazole DVT prophylaxis - Heparin subcu Disposition Telemetry Full code. Admission HPI Per Admitting Provider 19-year-old male with past medical history significant for cerebral palsy, alpha thalassemia X-linked intellectual disability syndrome, flexion contractures, swa llowing dysfunction and on pured diet, GERD, constipation, nonverbal, nonambulatory status lives with his mother was brought in because of high fever, tachycardia and hypoxia. Currently father is in the room who does not live with the son. Able to talk to the mother on the phone. Patient was recently admitted to [facility] on May 31 due to seizures. As per mother the doctors thought the seizures were probably because of missing his baclofen. Mother thinks he missed only couple of doses. No seizure medication was prescribed. Mother thinks he might of aspirated during the episode. Today patient was having some cough. And having fever of 105 degrees. And heart rates 120s. When checked his oxygen level saturations were 83% and mother put him on oxygen. Patient usually does not use oxygen. With oxygen Sats came up to mid 90s as per mother. Currently patient's heart rate still in 130s. Blood pressure is okay. Saturating 95% 2 L. He seems comfortable. No recent nausea or vomiting. He generally constipated. His BioFire came back positive for mycoplasma pneumonia. Chest x-ray looks okay. No leukocytosis. CT abdomen pelvis gas-distended colon without visible volvulus and possible enteritis. As per mother patient last night had hematuria and mother called the urologist on- call and was prescribed Bactrim which the patient has not taken it yet and she also gave him Pyridium from his previous prescription. Patient followed with urology in September 2023 for gross hematuria and had cystoscopy which was unremarkable and urine cytology was negative for urothelial carcinoma. Has history of UTI with Klebsiella treated with Bactrim in the past. Past medical history. As mentioned above Past surgical history. Cystoscopy. Social history. Lives with his mother. No alcohol. No smoking. No drug use. Family history. No family history on file Updated Medication List Medication Instructions Recorded Confirmed Type baclofen 10 mg tablet 10 mg PO UD 06/11/24 06/11/24 History bethanechol chloride 2.5 ml PO TID 06/11/24 06/11/24 History bisacodyl 5 mg tablet,delayed 5 mg PO DAILY 06/11/24 06/11/24 History release (Laxative (bisacodyl)) glycopyrrolate 1 mg tablet 2 mg PO BID 06/11/24 06/11/24 History lansoprazole 30 mg delayed 30 mg PO BID 06/11/24 06/11/24 History release,disintegrating tablet sulfamethoxazole 800 1 tab PO DIRECTED 06/11/24 06/11/24 History mg-trimethoprim 160 mg tablet Hospital Stay Data Consultations 06/11/24 00:38 ED Decision to Admit Stat 06/11/24 10:07 Consult Pulmonology Routine 06/11/24 10:20 Consult Gastroenterology Routine Diagnostic Imagining Performed 06/10/24 23:33 CT abd pelvis IV con only Stat 06/18/24 10:00 FL video swallow Routine
--- NOTE | 2024-06-15 16:39 | Hospitalist Progress Note ---
Date of Service June 15, 2024 Assessment & Plan (1) Mycoplasma pneumonia: Plan: (1) Mycoplasma pneumonia: Plan: per Dr. Bradshaw's notes with addendum: 19-year-old male with past medical history significant for cerebral palsy, alpha thalassemia X-linked intellectual disability syndrome, flexion contractures, swallowing dysfunction and on pured diet, GERD, constipation, nonverbal, nonambulatory status lives with his mother was brought in because of high fever, tachycardia and hypoxia. Currently father is in the room who does not live with the son. Able to talk to the mother on the phone. Patient was recently admitted to [facility] on May 31 due to seizures. As per mother the doctors thought the seizures were probably because of missing his baclofen. Mother thinks he missed only couple of doses. No seizure medication was prescribed. Mother thinks he might of aspirated during the episode. Today patient was having some cough. And having fever of 105 degrees. And heart rates 120s. When checked his oxygen level saturations were 83% and mother put him on oxygen. Patient usually does not use oxygen. With oxygen Sats came up to mid 90s as per mother. Currently patient's heart rate still in 130s. Blood pressure is okay. Saturating 95% 2 L. He seems comfortable. No recent nausea or vomiting. He generally constipated. His BioFire came back positive for mycoplasma pneumonia. Chest x-ray looks okay. No leukocytosis. CT abdomen pelvis gas-distended colon without visible volvulus and possible enteritis. As per mother patient last night had hematuria and mother called the urologist on- call and was prescribed Bactrim which the patient has not taken it yet and she also gave him Pyridium from his previous prescription. Patient followed with urology in September 2023 for gross hematuria and had cystoscopy which was unremarkable and urine cytology was negative for urothelial carcinoma. Has history of UTI with Klebsiella treated with Bactrim in the past. Sepsis - fever, tachycardia Mycoplasma pneumonia UTI Hematuria Fever tachycardia and hypoxia Initially saturating on 2 L -> the required 9L yesterday and pulmonary medicine was consulted. Currently on RA and saturating 92% Chest x-ray obtained - Elevation of the left hemidiaphragm with left basilar opacity. This favors pneumonia or aspiration pneumonitis. Atelectasis could appear similar. Possible aspiration as per mother as swallowing difficulty and recently had a seizure Continue ceftriaxone + doxycycline - discussed with pharmacy and w/ plant worker and urology (reviewed urine cultx from 08/2023 when pt was growing Klebsiella, also requested urine cultx from [facility] - recent admission - awaiting to hear back) Cont. doxy for 5 days to cover mycoplasma Follow urine cultx Cont. to closely monitor 06/13 - afebrile, on room air - blood culture, urine culture: negative continue Ceftri + Doxy 06/14 - afebrile on room air - cultures negative - continue Ceftri + Doxy 06/15 Remains afebrile, on room air Respiratory status stable Continue ceftriaxone plus doxycycline Fever - recurrent - required tylenol, toradol - cooling blanket used - cont. abx, IVF, tylenol, toradol 06/15 afebrile Colon dilation, Ileus - obtained KUB and consulted with GI - abdomen soft on exam - cont. to closely monitor - consider enema, consider decompression 06/13 (+) large BM this morning KUB: Increased diffuse prominent intestinal aeration consistent with ileus. There is decreased rectal stool. -- NPO IV fluids replace K and Mg -- will notify GI 06/14 (+) BMs continue NPO for now IV fluids electrolytes ok 06/15 (+) BMs Will advance diet to pured per speech therapy evaluation today Possible Aspiration -- from reflux, ileus? -- change Prevacid to Protonix IV BID management of Ileus per above -- Speech Tx on board 06/14 repeat speech eval done today no fol aspiration noted but recommends NPO for now until video swallow eval on Tuesday to be cautious 06/15 Discussed with patient's mother at length Speech therapy reevaluation performed today Plan is to resume patient's diet-pured Monitor till tomorrow If patient does well, we will proceed with discharge and have video swallow as an outpatient If patient showing flo aspiration, will keep the patient till Tuesday for video swallow evaluation Nutrition At home on pured diet as per father as per above History of cerebral palsy History of intellectual disability History of swallowing dysfunction Constipation 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 GERD On lansoprazole DVT prophylaxis - Heparin subcu Disposition Telemetry Full code. Admission and Anticipated Discharge Date Admission Date: June 11, 2024 Subjective ff up for aspiration, etc seen resting in bed, comfortable Patient's mother at the bedside Not in distress, no signs of pain Positive BMs No other new symptoms Review of Systems Review of Systems: all noted and negative except for above Physical Exam Physical Exam: General-alert, not in distress, breathing with no effort or accessory muscle use Eyes- anicteric Neck- no JVD Lungs- clear breath sounds bilaterally, no rales/wheezes Heart- normal rate, regular rhythm; no murmurs Abdomen- normal bowel sounds, nondistended, soft, no tenderness Extremities- no pretibial edema, no calf tenderness Neuro-no new gross focal neurologic deficits Skin- warm & dry Results & Data Results & Data Vital Signs (Past 12 Hours) Vital Signs Temp Pulse Pulse Resp BP Pulse Ox O2 Del Method 06/15/24 13:38 60 06/15/24 11:47 36.6 C 88 18 103/79 93 Room Air 06/15/24 08:12 36.4 C L 67 18 103/66 94 Room Air 06/15/24 07:30 Room Air all noted and reviewed including below (1) Mycoplasma pneumonia Laterality: bilateral Lung location: lower lobe of lung Qualified Code(s): J15.7 - Pneumonia due to Mycoplasma pneumoniae
[2024-06-16 07:07] LABS: BUN Creatinine Ratio 10.4 (10-20); Calcium 8.8 mg/dl (8.6-10.3); Creatinine Clr Calc Pharmacy 113.9 ml/min; Magnesium 1.9 mg/dl (1.7-2.4); Potassium 3.6 mmol/L (3.5-5.1)
--- NOTE | 2024-06-16 10:19 | Hospitalist Progress Note ---
Date of Service June 16, 2024 Assessment & Plan (1) Mycoplasma pneumonia: Plan: (1) Mycoplasma pneumonia: Plan: per Dr. Bradshaw's notes with addendum: 19-year-old male with past medical history significant for cerebral palsy, alpha thalassemia X-linked intellectual disability syndrome, flexion contractures, swallowing dysfunction and on pured diet, GERD, constipation, nonverbal, nonambulatory status lives with his mother was brought in because of high fever, tachycardia and hypoxia. Currently father is in the room who does not live with the son. Able to talk to the mother on the phone. Patient was recently admitted to [facility] on May 31 due to seizures. As per mother the doctors thought the seizures were probably because of missing his baclofen. Mother thinks he missed only couple of doses. No seizure medication was prescribed. Mother thinks he might of aspirated during the episode. Today patient was having some cough. And having fever of 105 degrees. And heart rates 120s. When checked his oxygen level saturations were 83% and mother put him on oxygen. Patient usually does not use oxygen. With oxygen Sats came up to mid 90s as per mother. Currently patient's heart rate still in 130s. Blood pressure is okay. Saturating 95% 2 L. He seems comfortable. No recent nausea or vomiting. He generally constipated. His BioFire came back positive for mycoplasma pneumonia. Chest x-ray looks okay. No leukocytosis. CT abdomen pelvis gas-distended colon without visible volvulus and possible enteritis. As per mother patient last night had hematuria and mother called the urologist on- call and was prescribed Bactrim which the patient has not taken it yet and she also gave him Pyridium from his previous prescription. Patient followed with urology in September 2023 for gross hematuria and had cystoscopy which was unremarkable and urine cytology was negative for urothelial carcinoma. Has history of UTI with Klebsiella treated with Bactrim in the past. Sepsis - fever, tachycardia Mycoplasma pneumonia UTI Hematuria Fever tachycardia and hypoxia Initially saturating on 2 L -> the required 9L yesterday and pulmonary medicine was consulted. Currently on RA and saturating 92% Chest x-ray obtained - Elevation of the left hemidiaphragm with left basilar opacity. This favors pneumonia or aspiration pneumonitis. Atelectasis could appear similar. Possible aspiration as per mother as swallowing difficulty and recently had a seizure Continue ceftriaxone + doxycycline - discussed with pharmacy and w/ theater manager and urology (reviewed urine cultx from 08/2023 when pt was growing Klebsiella, also requested urine cultx from [facility] - recent admission - awaiting to hear back) Cont. doxy for 5 days to cover mycoplasma Follow urine cultx Cont. to closely monitor 06/13 - afebrile, on room air - blood culture, urine culture: negative continue Ceftri + Doxy 06/14 - afebrile on room air - cultures negative - continue Ceftri + Doxy 06/15 Remains afebrile, on room air Respiratory status stable Continue ceftriaxone plus doxycycline Fever - recurrent - required tylenol, toradol - cooling blanket used - cont. abx, IVF, tylenol, toradol 06/15 afebrile Colon dilation, Ileus - obtained KUB and consulted with GI - abdomen soft on exam - cont. to closely monitor - consider enema, consider decompression 06/13 (+) large BM this morning KUB: Increased diffuse prominent intestinal aeration consistent with ileus. There is decreased rectal stool. -- NPO IV fluids replace K and Mg -- will notify GI 06/14 (+) BMs continue NPO for now IV fluids electrolytes ok 06/15 (+) BMs Will advance diet to pured per speech therapy evaluation today Possible Aspiration -- from reflux, ileus? -- change Prevacid to Protonix IV BID management of Ileus per above -- Speech Tx on board 06/14 repeat speech eval done today no flo aspiration noted but recommends NPO for now until video swallow eval on Tuesday to be cautious 06/15 Discussed with patient's mother at length Speech therapy reevaluation performed today Plan is to resume patient's diet-pured Monitor till tomorrow If patient does well, we will proceed with discharge and have video swallow as an outpatient If patient showing flo aspiration, will keep the patient till Tuesday for video swallow evaluation Nutrition At home on pured diet as per father as per above History of cerebral palsy History of intellectual disability History of swallowing dysfunction Constipation 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 GERD On lansoprazole DVT prophylaxis - Heparin subcu Disposition Telemetry Full code. Admission and Anticipated Discharge Date Admission Date: June 11, 2024 Results & Data Results & Data Vital Signs (Past 12 Hours) Vital Signs Temp Pulse Resp BP BP Pulse Ox O2 Del Method 06/16/24 08:45 36.4 C L 98 H 18 125/84 93 Room Air 06/16/24 03:07 36.8 C 89 18 151/95 H 94 Room Air 06/16/24 03:00 06/15/24 23:51 36.9 C 86 18 115/76 92 Room Air O2 Del Method 06/16/24 08:45 06/16/24 03:07 06/16/24 03:00 Room Air 06/15/24 23:51 (1) Mycoplasma pneumonia Laterality: bilateral Lung location: lower lobe of lung Qualified Code(s): J15.7 - Pneumonia due to Mycoplasma pneumoniae
[2024-06-16 11:53] VITALS: BP 105/74; PULSE 86; RESP 16; TEMP 97.9; O2SAT 91
[2024-06-16] MEDS: DOXYCYCLINE HYCLATE 100 MG CAP PO SCH (13:33)
--- NOTE | 2024-06-16 14:51 | Discharge Summary ---
Discharge Summary Date of Service June 16, 2024 delayed entry date of service noted above Principal Dx & Hospital Course #1 = Principal Diagnosis (1) Mycoplasma pneumonia: (1) Mycoplasma pneumonia: Plan: per Dr. Bradshaw's notes with addendum: 19-year-old male with past medical history significant for cerebral palsy, alpha thalassemia X-linked intellectual disability syndrome, flexion contractures, swallowing dysfunction and on pured diet, GERD, constipation, nonverbal, nonambulatory status lives with his mother was brought in because of high fever, tachycardia and hypoxia. Currently father is in the room who does not live with the son. Able to talk to the mother on the phone. Patient was recently admitted to [facility] on May 31 due to seizures. As per mother the doctors thought the seizures were probably because of missing his baclofen. Mother thinks he missed only couple of doses. No seizure medication was prescribed. Mother thinks he might of aspirated during the episode. Today patient was having some cough. And having fever of 105 degrees. And heart rates 120s. When checked his oxygen level saturations were 83% and mother put him on oxygen. Patient usually does not use oxygen. With oxygen Sats came up to mid 90s as per mother. Currently patient's heart rate still in 130s. Blood pressure is okay. Saturating 95% 2 L. He seems comfortable. No recent nausea or vomiting. He generally constipated. His BioFire came back positive for mycoplasma pneumonia. Chest x-ray looks okay. No leukocytosis. CT abdomen pelvis gas-distended colon without visible volvulus and possible enteritis. As per mother patient last night had hematuria and mother called the urologist on- call and was prescribed Bactrim which the patient has not taken it yet and she also gave him Pyridium from his previous prescription. Patient followed with urology in September 2023 for gross hematuria and had cystoscopy which was unremarkable and urine cytology was negative for urothelial carcinoma. Has history of UTI with Klebsiella treated with Bactrim in the past. Sepsis - fever, tachycardia Mycoplasma pneumonia UTI Hematuria Fever tachycardia and hypoxia Initially saturating on 2 L -> the required 9L yesterday and pulmonary medicine was consulted. Currently on RA and saturating 92% Chest x-ray obtained - Elevation of the left hemidiaphragm with left basilar opacity. This favors pneumonia or aspiration pneumonitis. Atelectasis could appear similar. 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 doxy for 5 days to cover mycoplasma 06/16 - clinically improved - afebrile, on room air - blood culture, urine culture: negative - received IV ceftriaxone plus doxycycline - d/c on 5 more days of Cefuroxime + Doxycycline to complete 10 day course Probiotics daily Colon dilation, Ileus - obtained KUB and consulted with GI - abdomen soft on exam 06/13 (+) large BM after laxatives KUB: Increased diffuse prominent intestinal aeration consistent with ileus. There is decreased rectal stool. - (+) BMs discussed with GI, felt KUB findings are chronic since patient having Bms Possible Aspiration -- from reflux, ileus? -- change Prevacid to Protonix IV BID management of constipation per above -- Speech Tx on board 06/14 repeat speech eval done no flo aspiration noted but recommends NPO for now until video swallow eval on Tuesday to be cautious 06/15 Discussed with patient's mother at length Speech therapy reevaluation performed Plan is to resume patient's diet-pured Monitor till tomorrow If patient does well, we will proceed with discharge and have video swallow as an outpatient If patient showing flo aspiration, will keep the patient till Tuesday for video swallow evaluation 06/16 patient not showing signs of flo aspiration with pureed diet plan for outpatient video swallow study- patient's mother prefers to be done in [facility] Nutrition At home on pured diet as per father as per above History of cerebral palsy History of intellectual disability History of swallowing dysfunction Constipation 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 GERD On lansoprazole DVT prophylaxis - Heparin subcu Disposition discharge home plan of care discussed with patient's mother Shayna at bedside in detail and at length all questions answered she is understanding, agreeable, comfortable with the plan of care Notes For Next Care Provider Medication Changes From Visit Cefuroxime Doxycycline Admission HPI Per Admitting Provider 19-year-old male with past medical history significant for cerebral palsy, alpha thalassemia X-linked intellectual disability syndrome, flexion contractures, swallowing dysfunction and on pured diet, GERD, constipation, nonverbal, nonambulatory status lives with his mother was brought in because of high fever, tachycardia and hypoxia. Currently father is in the room who does not live with the son. Able to talk to the mother on the phone. Patient was recently admitted to [facility] on May 31 due to seizures. As per mother the doctors thought the seizures were probably because of missing his baclofen. Mother thinks he missed only couple of doses. No seizure medication was prescribed. Mother thinks he might of aspirated during the episode. Today patient was having some cough. And having fever of 105 degrees. And heart rates 120s. When checked his oxygen level saturations were 83% and mother put him on oxygen. Patient usually does not use oxygen. With oxygen Sats came up to mid 90s as per mother. Currently patient's heart rate still in 130s. Blood pressure is okay. Saturating 95% 2 L. He seems comfortable. No recent nausea or vomiting. He generally constipated. His BioFire came back positive for mycoplasma pneumonia. Chest x-ray looks okay. No leukocytosis. CT abdomen p kailash gas-distended colon without visible volvulus and possible enteritis. As per mother patient last night had hematuria and mother called the urologist on- call and was prescribed Bactrim which the patient has not taken it yet and she also gave him Pyridium from his previous prescription. Patient followed with urology in September 2023 for gross hematuria and had cystoscopy which was unremarkable and urine cytology was negative for urothelial carcinoma. Has history of UTI with Klebsiella treated with Bactrim in the past. Admission Exam Per Admitting Provider General- Not in acute distress, Non verbal Head- atraumatic Eyes- PERRL. ENT- oropharynx clear. poor dentition Neck- supple, no JVD. Lungs- clear to auscultation no wheezing or crackles Heart- regular rhythm; tachycardia, no murmur, no gallop. Abdomen- normal bowel sounds, soft, nontender, no distension Extremities- no pretibial edema, contractures of extremities seen Neuro- alert, awake, non verbal. Discharge Exam General-alert, not in distress, breathing with no effort or accessory muscle use in good spirits Eyes- anicteric Neck- no JVD Lungs- clear breath sounds bilaterally, no rales/wheezes Heart- normal rate, regular rhythm; no murmurs Abdomen- normal bowel sounds, nondistended, soft, no tenderness Extremities- no pretibial edema, no calf tenderness Neuro-no new gross focal neurologic deficits Skin- warm & dry Updated Medication List Medication Instructions Recorded Confirmed Type baclofen 10 mg tablet 10 mg PO UD 06/11/24 06/11/24 History bethanechol chloride 2.5 ml PO TID 06/11/24 06/11/24 History bisacodyl 5 mg tablet,delayed 5 mg PO DAILY 06/11/24 06/11/24 History release (Laxative (bisacodyl)) glycopyrrolate 1 mg tablet 2 mg PO BID 06/11/24 06/11/24 History lansoprazole 30 mg delayed 30 mg PO BID 06/11/24 06/11/24 History release,disintegrating tablet sulfamethoxazole 800 1 tab PO DIRECTED 06/11/24 06/11/24 History mg-trimethoprim 160 mg tablet cefuroxime axetil 250 mg tablet 250 mg PO BID 5 days #10 tabs 06/16/24 Rx doxycycline hyclate 100 mg capsule 100 mg PO BID #9 caps 06/16/24 Rx magnesium oxide 400 mg (241.3 mg 400 mg PO BID 30 days #60 tabs 06/16/24 Rx magnesium) tablet Hospital Stay Data Consultations 06/11/24 00:38 ED Decision to Admit Stat 06/11/24 10:07 Consult Pulmonology Routine 06/11/24 10:20 Consult Gastroenterology Routine Diagnostic Imagining Performed 06/10/24 23:33 CT abd pelvis IV con only Stat 06/18/24 10:00 FL video swallow Routine Pending Results Patient Have Any Pending Studies at Discharge: Yes Discharge Instructions Given to Patient (Per Discharging Provider) PLEASE REFER TO YOUR NEW MEDICATION LIST AND FOLLOW INSTRUCTIONS CAREFULLY. YOUR NEW MEDICATIONS INCLUDE: Cefuroxime, doxycycline-antibiotic for pneumonia and UTI Please take a probiotic daily and eat yogurt daily for at least a month. Please encourage oral fluid intake to maintain adequate daily hydration. PLEASE CALL YOUR PRIMARY CARE PHYSICIAN OR RETURN TO THE ER IF WITH WORSENING OF SYMPTOMS, INCLUDING Fevers or chills, weakness, shortness of breath, problems with urination, diarrhea, nausea or vomiting, poor oral intake, etc. FOLLOW UP WITH PRIMARY CARE PHYSICIAN IN 1 WEEK. Total Time Total Time Spent Total Time Spent (In Minutes): 50 minutes
== END 2024-06-16 15:36 | disposition home or self-care (01) | DRG 871 ==
LOC: ED 22:33 → SUATTDRO 06-11 01:52 → 2S 06-11 01:52 → 2E 06-11 14:56